=== PATIENT | female | born 1985 | race American Indian/Alaskan Native ===

== ENCOUNTER 2016-10-22 02:16 | Emergency (ER) | payer SELFPAY ==
[2016-10-22 02:18] VITALS: BMI 38.6
[2016-10-22 02:31] VITALS: BP 144/78; PULSE 85; RESP 17; TEMP 98.4; O2SAT 98
[2016-10-22] MEDS ORDERED: DiphenhydrAMINE 50 mg/ml Inj ONE ×2 (02:47→03:50)
--- NOTE | 2016-10-22 03:01 | ED PDOC ---
HPI: General Adult Time Seen by Provider: 10/22/16 02:37 Chief Complaint (Nursing): Medical Clearance Chief Complaint (Provider): left upper lip swelling History Per: Patient History/Exam Limitations: no limitations Onset/Duration Of Symptoms: Sudden Onset Have you had recent travel within the past 21 days to any of the following countries: [place], [place], [place] or [place]?: No Current Symptoms Are (Timing): Still Present Recently: Seen In ED Additional Complaint(s): 31yo female w/ PMHx including gastritis presents to the ED with c/o acute onset left upper lip swelling. Denies known allergen exposure and states approximately 10 days ago experienced similar episode involving her tongue. Patient was seen in this ED and given IM Benadryl at that time and took Benadryl for a couple days after being discharged with no recurrence of symptoms. Swelling recurred tonight causing presentation. Denies tongue swelling , SOB, throat tightness, chest pain, rash, pruritis. Past Medical History Reviewed: Historical Data, Nursing Documentation, Vital Signs Vital Signs: Last Vital Signs Temp 98.4 F 10/22/16 02:27 Pulse 85 10/22/16 02:27 Resp 17 10/22/16 02:27 BP 144/78 10/22/16 02:27 Pulse Ox 98 10/22/16 03:09 - Medical History PMH: Gastritis - Surgical History Surgical History: No Surg Hx - Family History Family History: States: No Known Family Hx - Social History Current smoker - smoking cessation education provided: No Alcohol: None Drugs: Denies - Immunization History Hx Tetanus Toxoid Vaccination: Yes - Home Medications Home Medications: Ambulatory Orders Medication Instructions Recorded Cetirizine HCl [Zyrtec] 10 mg PO QAM #10 capsule 10/22/16 Famotidine [Pepcid] 20 mg PO Q12 #14 tab 10/22/16 Methylprednisolone [Medrol Dosepak] 4 mg PO ASDIR #1 pkg 10/22/16 - Allergies Allergies/Adverse Reactions: Allergies Allergy/AdvReac Type Severity Reaction Status Date / Time No Known Allergies Allergy Verified 10/14/16 23:28 Review of Systems ROS Statement: Except As Marked, All Systems Reviewed And Found Negative ENT: Positive for: Other (left upper lip swelling, no tongue swelling, no throat tightness ) Cardiovascular: Negative for: Chest Pain Respiratory: Negative for: Shortness of Breath Skin: Positive for: Other (no pruritis ). Negative for: Rash Physical Exam - Reviewed Nursing Documentation Reviewed: Yes Vital Signs Reviewed: Yes - Physical Exam Appears: Positive for: Well, No Acute Distress Head Exam: Positive for: ATRAUMATIC, NORMAL INSPECTION, NORMOCEPHALIC Skin: Positive for: Normal Color, Warm, Dry. Negative for: Rash Eye Exam: Positive for: Normal appearance, EOMI, PERRL ENT: Positive for: Pharynx Is (clear ), Other (2+ lip swelling more prominent on left side ). Negative for: Pharyngeal Erythema, Tonsillar Exudate, Tonsillar Swelling Neck: Positive for: Normal, Painless ROM, Supple Cardiovascular/Chest: Positive for: Regular Rate, Rhythm. Negative for: Murmur , Tachycardia Respiratory: Positive for: Normal Breath Sounds. Negative for: Wheezing, Respiratory Distress Gastrointestinal/Abdominal: Positive for: Normal Exam, Bowel Sounds, Soft. Negative for: Tenderness Back: Positive for: Normal Inspection Extremity: Positive for: Normal ROM. Negative for: Deformity, Swelling Neurologic/Psych: Positive for: Alert, Oriented. Negative for: Motor/Sensory Deficits - Laboratory Results Result Diagrams: 10/22/16 03:15 10/22/16 03:15 - ECG O2 Sat by Pulse Oximetry: 98 Pulse Ox Interpretation: Normal (RA) Medical Decision Making Medical Decision Makin: Impression: 31yo female w/ acute allergic reaction and angioedema of upper lip Plan: Labs IVF, Benadryl 25mg IV, Pepcid 20mg IV, solu-medrol 125mg IVP reassess [id number]: Labs reviewed, show no clinically significant abnormalities. Patient reports significant improvement in symptoms and is stable for d/c. Patient referred to wireless engineer and will also f/u with her PCP. Dx: angioedema, allergic reaction Rx: zyrtec, pepcid, medrol Improved Scribe Attestation: Documented by Mary Rasheed acting as a scribe for Kobi Vásquez MD. Provider Scribe Attestation: All medical record entries made by the Scribe were at my direction and personally dictated by me. I have reviewed the chart and agree that the record accurately reflects my personal performance of the history, physical exam, medical decision making, and the department course for this patient. I have also personally directed, reviewed, and agree with the discharge instructions and disposition. Disposition - Clinical Impression Clinical Impression: Angioedema, Allergic reaction - Patient ED Disposition Is Patient to be Admitted: No Counseled Patient/Family Regarding: Studies Performed, Diagnosis, Need For Followup, Rx Given - Disposition Referrals: Chidi Page MD [Staff Provider] - Taiwo Bhatti MD [Primary Care Provider] - Disposition: Routine/Home Disposition Time: 03:55 Condition: IMPROVED Prescriptions: Methylprednisolone [Medrol Dosepak] 4 mg PO ASDIR #1 pkg Famotidine [Pepcid] 20 mg PO Q12 #14 tab Cetirizine HCl [Zyrtec] 10 mg PO QAM #10 capsule Instructions: Angioedema (ED), General Allergic Reaction (ED)
[2016-10-22] MEDS: DiphenhydrAMINE 50 mg/ml Inj IV STA ×2 (03:08→03:59)
[2016-10-22] MEDS: Sodium Chloride 0.9% 1,000 ML IV STA (03:13)
[2016-10-22 03:32] LABS: BASO # 0.1 K/uL (0.0-0.2); BASO % 1.3 % (0.0-2.0); EOS # 0.2 K/uL (0.0-0.7); EOS % 2.8 % (0.0-4.0); HEMATOCRIT 38.2 % (34.0-47.0); LYMPH # 2.8 K/uL (1.0-4.3); LYMPH % 34.4 % (20.0-40.0); MEAN CELL VOLUME 88.9 fl (81.0-99.0); MEAN CORPUSCULAR HEMOGLOBIN 30.1 pg (27.0-31.0); MEAN CORPUSCULAR HGB CONC 33.9 g/dL (33.0-37.0); MEAN PLATELET VOLUME 9.6 fl (7.2-11.7); MONO # 0.4 K/uL (0.0-0.8); MONO % 4.6 % (0.0-10.0); NEUT # 4.6 K/uL (1.8-7.0); NEUT % 56.9 % (50.0-75.0); RED CELL DISTRIBUTION WIDTH 13.9 % (11.5-14.5)
[2016-10-22 03:37] LABS: CHLORIDE 106 mmol/L (98-107); SODIUM 140 mmol/l (132-148)
[2016-10-22 03:40] LABS: ALB/GLOB RATIO 1.3 (1.0-2.1); ALKALINE PHOSPHATASE 47 U/L (38-126); ALT/SGPT 26 U/L (9-52); AST/SGOT 19 U/L (14-36); BILIRUBIN,TOTAL 0.5 mg/dl (0.2-1.3); BLOOD UREA NITROGEN 7 mg/dl (7-17); CARBON DIOXIDE 25 mmol/L (22-30); GFR AFRICAN-AMERICAN > 60; GLUCOSE,RANDOM 95 mg/dL (65-105); TOTAL PROTEIN 7.4 G/DL (6.3-8.2)
[2016-10-22 03:41] LABS: CALCIUM 9.3 mg/dL (8.4-10.2)
== END 2016-10-22 03:51 | disposition home or self-care (01) ==
LOC: H.ER 02:16
DX: T78.3XXA Angioneurotic edema, initial encounter (principal); T78.40XA Allergy, unspecified, initial encounter
CPT/HCPCS: 80053; 81025; 85025; 96361; 96374; 96375; 96376; 99283; J1200; J2930; J7040

== ENCOUNTER 2016-11-09 21:44 | Emergency (ER) | payer MEDICAID ==
[2016-11-09 21:49] VITALS: BMI 21.5
[2016-11-09] MEDS ORDERED: Sodium Chloride 0.9% 1,000 ML IV STA (22:06)
[2016-11-09 22:31] LABS: BASO % 0.6 % (0.0-2.0); EOS % 0.6 % (0.0-4.0); HEMATOCRIT 39.3 % (34.0-47.0); LYMPH % 27.3 % (20.0-40.0); MEAN CORPUSCULAR HGB CONC 33.3 g/dL (33.0-37.0); MEAN PLATELET VOLUME 9.5 fl (7.2-11.7); MONO # 0.3 K/uL (0.0-0.8); MONO % 4.4 % (0.0-10.0); NEUT % 67.1 % (50.0-75.0); RED CELL DISTRIBUTION WIDTH 13.7 % (11.5-14.5); WHITE BLOOD COUNT 7.5 K/uL (4.8-10.8)
[2016-11-09 22:47] LABS: ALB/GLOB RATIO 1.3 (1.0-2.1); ALKALINE PHOSPHATASE 57 U/L (38-126); ALT/SGPT 19 U/L (9-52); AST/SGOT 16 U/L (14-36); BILIRUBIN,TOTAL 0.7 mg/dl (0.2-1.3); BLOOD UREA NITROGEN 7 mg/dl (7-17); CALCIUM 9.6 mg/dL (8.4-10.2); CARBON DIOXIDE 27 mmol/L (22-30); CHLORIDE 103 mmol/L (98-107); GFR AFRICAN-AMERICAN > 60; GLUCOSE,RANDOM 93 mg/dL (65-105); LIPASE 91 U/L (23-300); SODIUM 144 mmol/l (132-148); TOTAL PROTEIN 7.2 G/DL (6.3-8.2)
--- NOTE | 2016-11-09 22:50 | ED PDOC ---
HPI: Abdomen Time Seen by Provider: 11/09/16 21:54 Chief Complaint (Nursing): Abdominal Pain Chief Complaint (Provider): Abdominal Pain History Per: Patient History/Exam Limitations: no limitations Onset/Duration Of Symptoms: Hrs (for a couple of hours, onset after eating dinner), Intermittent Episodes Outside of [place] travel?: No Current Symptoms Are (Timing): Gone Now (not present in ED) Severity: Moderate Location Of Pain/Discomfort: Other (originating in right medial back w/ radiation around to epigastrum and periumbilical regions) Quality Of Discomfort: Cramping Associated Symptoms: Nausea, Vomiting (non-bilious/non-bloody), Diarrhea (mild) . denies: Fever, Chills Additional Complaint(s): Mallory Land is a 31 year old female, with a past medical history inclusive of gastritis (no meds), who presents to the ED on 11/09/16 for the evaluation of a moderate amount of cramping abdominal pain that she has experienced intermittently over the past couple of hours, onset of which was after she had eaten dinner. Pain, not present upon initial ED evaluation, reportedly originates in the right medial back with radiation around to both the epigastric and periumbilical regions. Associated nausea and a couple episodes of non-bilious/non-bloody vomiting also reported in addition to some mild, non- bloody diarrhea. Denies fever/chills. Though she reports having experienced similar pain in the past she has never had her symptoms medically evaluated. PMD: Taiwo Bhatti Past Medical History Reviewed: Historical Data, Nursing Documentation, Vital Signs Vital Signs: Last Vital Signs Temp 98.1 F 11/10/16 02:25 Pulse 75 11/10/16 02:25 Resp 16 11/10/16 02:25 BP 132/85 11/10/16 02:25 Pulse Ox 99 11/10/16 02:25 - Medical History PMH: Gastritis - Surgical History Surgical History: No Surg Hx - Family History Family History: States: Unknown Family Hx - Social History Current smoker - smoking cessation education provided: Yes (light (<10 cigarettes/day)) Alcohol: None Drugs: Denies - Immunization History Hx Tetanus Toxoid Vaccination: Yes - Home Medications Home Medications: Ambulatory Orders Medication Instructions Recorded Cetirizine HCl [Zyrtec] 10 mg PO QAM #10 capsule 10/22/16 Famotidine [Pepcid] 20 mg PO Q12 #14 tab 10/22/16 - Allergies Allergies/Adverse Reactions: Allergies Allergy/AdvReac Type Severity Reaction Status Date / Time No Known Allergies Allergy Verified 10/14/16 23:28 Review of Systems ROS Statement: Except As Marked, All Systems Reviewed And Found Negative Constitutional: Negative for: Fever, Chills Gastrointestinal: Positive for: Nausea, Vomiting (couple episodes, non-bilious/ non-bloody), Abdominal Pain (originating in right medial back w/radiation around to epigastric/periumbilical regions, intermittent and not present in ED) , Diarrhea (mild) Physical Exam - Reviewed Nursing Documentation Reviewed: Yes Vital Signs Reviewed: Yes - Physical Exam Appears: Positive for: Non-toxic, No Acute Distress (comfortable) Head Exam: Positive for: ATRAUMATIC, NORMOCEPHALIC Skin: Positive for: Normal Color, Warm, Dry Eye Exam: Positive for: Normal appearance, EOMI, PERRL Neck: Positive for: Normal, Painless ROM, Supple Cardiovascular/Chest: Positive for: Regular Rate, Rhythm. Negative for: Murmur Respiratory: Positive for: Normal Breath Sounds. Negative for: Respiratory Distress Gastrointestinal/Abdominal: Positive for: Normal Exam, Soft. Negative for: Tenderness Back: Positive for: Normal Inspection. Negative for: L CVA Tenderness, R CVA Tenderness Extremity: Positive for: Normal ROM Neurologic/Psych: Positive for: Alert, Oriented - Laboratory Results Result Diagrams: 11/09/16 22:04 11/09/16 22:04 - ECG O2 Sat by Pulse Oximetry: 98 (RA) Pulse Ox Interpretation: Normal - CT Scan/US US gallbladder Other Rad Studies (CT/US): Read By Radiologist, Radiology Report Reviewed Other Rad Interpretation: no acute findings - Progress Re-evaluation Time: 02:30 Condition: Re-examined, Improved Medical Decision Making Medical Decision Makin:54 Initial Impression: abdominal pain Differential diagnoses include but are not limited to gastritis, gallbladder spasm or other gallbladder disease, IBS, pancreatitis. Initial Plan: * US Gallbladder and Common Duct * Labs * Lipase * Upreg * Udip * IV NS 1000ml at 1000mls/hr * Pepcid 20mg IVP * José Miguel 4mg IV * Bentyl 10mg PO * Reevaluation Scribe Attestation: Documented by Karla Silverman, acting as a scribe for Raissa Monteiro MD. Provider Scribe Attestation: All medical record entries made by the Scribe were at my direction and personally dictated by me. I have reviewed the chart and agree that the record accurately reflects my personal performance of the history, physical exam, medical decision making, and the department course for this patient. I have also personally directed, reviewed, and agree with the discharge instructions and disposition. Disposition - Clinical Impression Clinical Impression: Abdominal pain in female - Patient ED Disposition Is Patient to be Admitted: No Counseled Patient/Family Regarding: Studies Performed, Diagnosis - Disposition Referrals: Taiwo Bhatti MD [Primary Care Provider] - Disposition: Routine/Home Disposition Time: 02:30 Condition: GOOD Additional Instructions: Return for worsening. Follow up with your PCP in 2-3 days. Instructions: Abdominal Pain (ED)
--- NOTE | 2016-11-09 23:40 | US ---
EXAM: US Abdomen Limited, Right Upper Quadrant CLINICAL HISTORY: 31 years old, female; Pain; Abdominal pain; Epigastric; Additional info: Epigastric pain TECHNIQUE: Real-time ultrasound of the right upper quadrant with image documentation. COMPARISON: CT - ABD PELVIS W/O PO OR IV CONT 08/30/2015 12:25:38 AM FINDINGS: Liver: A 13 mm focus of increased echogenicity is identified within the liver, statistically a hemangioma, and similar to previous CT examination performed 08/30/2015. The liver is otherwise unremarkable in echogenicity and size measuring 15.6 cm in longitudinal dimension. No intrahepatic bile duct dilation. Gallbladder: The gallbladder is decompressed, and otherwise unremarkable. No stones are present. Common bile duct: No stones. No dilation, measuring 3 mm. Pancreas: Visualization of the pancreas is limited by overlying bowel gas. Right kidney: No acute findings. No obstructing stones. No solid mass. No hydronephrosis. The visualized portion of the abdominal aorta is non-aneurysmal. The IVC is patent. IMPRESSION: No abnormality detected within the gallbladder. Limited evaluation of the pancreas, secondary to overlying bowel gas. No acute pathology detected sonographically within the right upper quadrant.
[2016-11-10 02:25] VITALS: BP 132/85; PULSE 75; RESP 16; TEMP 98.1
[2016-11-10 02:31] VITALS: O2SAT 98
== END 2016-11-10 02:37 | disposition home or self-care (01) ==
LOC: H.ER 21:44
DX: R10.13 Epigastric pain (principal); R11.2 Nausea with vomiting, unspecified; R19.7 Diarrhea, unspecified

== ENCOUNTER 2017-01-05 22:14 | Emergency (ER) | payer MEDICAID ==
[2017-01-05 22:14] VITALS: BMI 21.5
[2017-01-05 22:32] VITALS: BP 133/86; PULSE 100; RESP 16; TEMP 98.6; O2SAT 98
--- NOTE | 2017-01-05 23:26 | ED PDOC ---
HPI: Abdomen Time Seen by Provider: 01/05/17 22:37 Chief Complaint (Nursing): Abdominal Pain Chief Complaint (Provider): abdominal pain History Per: Patient History/Exam Limitations: no limitations Onset/Duration Of Symptoms: Days (1), Waxing/Waning Outside of [place] travel?: No Current Symptoms Are (Timing): Still Present Location Of Pain/Discomfort: Diffuse Quality Of Discomfort: "Pain" Associated Symptoms: Diarrhea (watery nonbloody nonmucoid), Loss Of Appetite. denies: Fever, Chills, Nausea, Vomiting, Constipation, Urinary Symptoms Exacerbating Factors: Food Alleviating Factors: None Additional Complaint(s): Similar to previous episodes of abdominal pain. Seen in this ER with negative workup several times. No known sick contacts or recent antibiotics. PMD Dr Sevilla. Past Medical History Reviewed: Historical Data, Nursing Documentation, Vital Signs Vital Signs: Last Vital Signs Temp 98.6 F 01/05/17 22:31 Pulse 100 H 01/05/17 22:31 Resp 16 01/05/17 22:31 BP 133/86 01/05/17 22:31 Pulse Ox 98 01/05/17 23:28 - Medical History PMH: Gastritis - Family History Family History: States: No Known Family Hx - Social History Current smoker - smoking cessation education provided: No - Immunization History Hx Tetanus Toxoid Vaccination: Yes - Home Medications Home Medications: Ambulatory Orders Medication Instructions Recorded DiphenhydrAMINE [Benadryl] 50 mg PO PRN PRN 11/16/16 Loratadine [Claritin] 10 mg PO DAILY #7 tab 11/16/16 predniSONE [predniSONE Tab] 40 mg PO DAILY #8 tab 11/16/16 Dicyclomine [Bentyl] 20 mg PO BID PRN #30 tab 01/06/17 Famotidine [Pepcid] 40 mg PO DAILY PRN #14 tab 01/06/17 - Allergies Allergies/Adverse Reactions: Allergies Allergy/AdvReac Type Severity Reaction Status Date / Time No Known Allergies Allergy Verified 01/05/17 22:17 Review of Systems ROS Statement: Except As Marked, All Systems Reviewed And Found Negative (and as per HPI) Gastrointestinal: Positive for: Abdominal Pain, Diarrhea. Negative for: Nausea , Vomiting, Constipation, Melena, Hematochezia Genitourinary Female: Negative for: Dysuria, Frequency, Pelvic Pain Physical Exam - Reviewed Nursing Documentation Reviewed: Yes Vital Signs Reviewed: Yes - Physical Exam Appears: Positive for: Well, Non-toxic Head Exam: Positive for: ATRAUMATIC, NORMOCEPHALIC Skin: Positive for: Warm, Dry Eye Exam: Positive for: EOMI, PERRL ENT: Negative for: Pharyngeal Erythema, Tonsillar Exudate Neck: Positive for: Painless ROM, Supple Cardiovascular/Chest: Positive for: Regular Rate, Rhythm. Negative for: Murmur Respiratory: Positive for: Normal Breath Sounds. Negative for: Wheezing Gastrointestinal/Abdominal: Positive for: Bowel Sounds, Soft, Tenderness (mild diffuse). Negative for: Mass, Distended, Guarding, Rebound Back: Positive for: Normal Inspection. Negative for: Vertebral Tenderness Extremity: Positive for: Normal ROM. Negative for: Deformity Lymphatic: Negative for: Adenopathy Neurologic/Psych: Positive for: Alert. Negative for: Motor/Sensory Deficits - ECG O2 Sat by Pulse Oximetry: 98 - Progress ED Course And Treament: Reviewed previous visits and negative workup for abdominal pain. She had followed up with her doctor who did not refer her to GI. However, she did not report her visits to the ER for this abdominal pain. Given multiple visits for same issue, will trial PO GI meds and reassess. Re-evaluation Time: 00:11 Condition: Improved Disposition - Clinical Impression Clinical Impression: Abdominal pain Counseled Patient/Family Regarding: Studies Performed, Diagnosis, Need For Followup, Rx Given - Disposition Referrals: Jarrett Robins MD [Staff Provider] - 01/07/17 [facility] [Outside] (CALL [employer]OVERED [employer] FOR ASSISTANCE WITH SCHEDULING FOLLOW UP APPOINTMENT WITH A EMPLOYMENT ADVISOR.) Disposition: Routine/Home Disposition Time: 00:00 Condition: IMPROVED Prescriptions: Dicyclomine [Bentyl] 20 mg PO BID PRN #30 tab PRN Reason: abdominal pain Famotidine [Pepcid] 40 mg PO DAILY PRN #14 tab PRN Reason: reflux Instructions: Abdominal Pain (ED) Forms: [facility] ED School/Work Excuse
== END 2017-01-06 00:50 | disposition home or self-care (01) ==
LOC: H.ER 22:14
DX: R10.9 Unspecified abdominal pain (principal)

== ENCOUNTER 2017-01-11 03:51 | Emergency (ER) | payer MEDICAID ==
[2017-01-11 03:52] VITALS: BMI 21.5
[2017-01-11 04:16] VITALS: BP 153/89; PULSE 99; RESP 15; TEMP 97.9; O2SAT 98
[2017-01-11] MEDS ORDERED: Sodium Chloride 0.9% 1,000 ML IV STA (04:26)
--- NOTE | 2017-01-11 04:30 | ED PDOC ---
HPI: Abdomen Time Seen by Provider: 01/11/17 04:09 Chief Complaint (Nursing): Abdominal Pain Chief Complaint (Provider): abdominal pain History Per: Patient History/Exam Limitations: no limitations Onset/Duration Of Symptoms: Hrs (4), Waxing/Waning Current Symptoms Are (Timing): Still Present Location Of Pain/Discomfort: Diffuse Quality Of Discomfort: Cramping Additional History Per: Patient Additional Complaint(s): 31 y/o female presents for eval of diffuse intermittent crampy abdominal pain x 4 hours. Associated nausea, and one episode of nonbloody diarrhea. Patient notes having these symptoms x months, has never followed up with a GI specialist. Denies fever, vomiting, chest pain, shortness of breath, palpitations, recent travel, sick contacts. Past Medical History Reviewed: Historical Data, Nursing Documentation, Vital Signs Vital Signs: Last Vital Signs Temp 97.9 F 01/11/17 04:11 Pulse 99 H 01/11/17 04:11 Resp 15 01/11/17 04:11 BP 153/89 H 01/11/17 04:11 Pulse Ox 98 01/11/17 05:58 - Medical History PMH: Gastritis - Surgical History Surgical History: No Surg Hx - Family History Family History: States: Unknown Family Hx - Immunization History Hx Tetanus Toxoid Vaccination: Yes - Home Medications Home Medications: Ambulatory Orders Medication Instructions Recorded DiphenhydrAMINE [Benadryl] 50 mg PO PRN PRN 11/16/16 Loratadine [Claritin] 10 mg PO DAILY #7 tab 11/16/16 predniSONE [predniSONE Tab] 40 mg PO DAILY #8 tab 11/16/16 Dicyclomine [Bentyl] 20 mg PO BID PRN #30 tab 01/06/17 Famotidine [Pepcid] 40 mg PO DAILY PRN #14 tab 01/06/17 - Allergies Allergies/Adverse Reactions: Allergies Allergy/AdvReac Type Severity Reaction Status Date / Time No Known Allergies Allergy Verified 01/11/17 04:13 Review of Systems ROS Statement: Except As Marked, All Systems Reviewed And Found Negative Gastrointestinal: Positive for: Nausea, Abdominal Pain, Diarrhea Physical Exam - Reviewed Nursing Documentation Reviewed: Yes Vital Signs Reviewed: Yes - Physical Exam Appears: Positive for: Well, Non-toxic, No Acute Distress Head Exam: Positive for: ATRAUMATIC, NORMAL INSPECTION, NORMOCEPHALIC Skin: Positive for: Normal Color Eye Exam: Positive for: Normal appearance ENT: Positive for: Normal ENT Inspection Cardiovascular/Chest: Positive for: Regular Rate, Rhythm Respiratory: Positive for: Normal Breath Sounds Gastrointestinal/Abdominal: Positive for: Bowel Sounds, Soft, Tenderness ( epigastric, lower abdomen). Negative for: Distended, Guarding, Rebound Back: Positive for: Normal Inspection Extremity: Positive for: Normal ROM Neurologic/Psych: Positive for: Alert, Oriented - Laboratory Results Result Diagrams: 01/11/17 04:30 01/11/17 04:30 - ECG O2 Sat by Pulse Oximetry: 98 - Progress ED Course And Treament: labs, urine, IV fluids, IV pepcid, IV zofran, PO bentyl Patient educated on findings, discharged with instructions to follow up GI. Advised to fill prescriptions given at previous visit. Return to ED for worsening/concerning symptoms. Disposition - Clinical Impression Clinical Impression: Abdominal cramps - Patient ED Disposition Is Patient to be Admitted: No Counseled Patient/Family Regarding: Studies Performed, Diagnosis, Need For Followup - Disposition Referrals: Taiwo Bhatti MD [Primary Care Provider] - Jarrett Robins MD [Staff Provider] - Disposition: Routine/Home Disposition Time: 05:57 Condition: IMPROVED Instructions: Abdominal Pain (ED)
[2017-01-11 04:56] LABS: BASO # 0.1 K/uL (0.0-0.2); BASO % 0.6 % (0.0-2.0); EOS # 0.2 K/uL (0.0-0.7); EOS % 1.7 % (0.0-4.0); HEMATOCRIT 37.6 % (34.0-47.0); LYMPH # 3.4 K/uL (1.0-4.3); LYMPH % 34.5 % (20.0-40.0); MEAN CELL VOLUME 88.9 fl (81.0-99.0); MEAN CORPUSCULAR HEMOGLOBIN 29.6 pg (27.0-31.0); MEAN CORPUSCULAR HGB CONC 33.2 g/dL (33.0-37.0); MEAN PLATELET VOLUME 9.6 fl (7.2-11.7); MONO # 0.4 K/uL (0.0-0.8); MONO % 4.1 % (0.0-10.0); NEUT # 5.8 K/uL (1.8-7.0); NEUT % 59.1 % (50.0-75.0); NRBC % 0.1 % (0.0-0.0); RED CELL DISTRIBUTION WIDTH 14.9 % (11.5-14.5); WHITE BLOOD COUNT 9.8 K/uL (4.8-10.8)
[2017-01-11 05:11] LABS: ALB/GLOB RATIO 1.4 (1.0-2.1); ALKALINE PHOSPHATASE 37 U/L (38-126); ALT/SGPT 27 U/L (9-52); AST/SGOT 28 U/L (14-36); BILIRUBIN,TOTAL 0.6 mg/dl (0.2-1.3); BLOOD UREA NITROGEN 10 mg/dl (7-17); CALCIUM 9.1 mg/dL (8.4-10.2); CARBON DIOXIDE 28 mmol/L (22-30); CHLORIDE 103 mmol/L (98-107); GFR AFRICAN-AMERICAN > 60; GLUCOSE,RANDOM 93 mg/dL (65-105); LIPASE 83 U/L (23-300); SODIUM 140 mmol/l (132-148); TOTAL PROTEIN 7.4 G/DL (6.3-8.2)
[2017-01-11 05:12] LABS: POTASSIUM 4.5 MMOL/L (3.6-5.0)
[2017-01-11 05:57] LABS: RBC URINE 3 /hpf (0-3); URINE BACTERIA OCC (<OCC); URINE BILIRUBIN NEGATIVE (NEGATIVE); URINE BLOOD NEGATIVE (NEGATIVE); URINE COLOR YELLOW (YELLOW); URINE GLUCOSE (UA) NEG (Normal); URINE KETONE NEGATIVE (NEGATIVE); URINE LEUKOCYTE ESTERASE TRACE Leu/uL (Negative); URINE PROTEIN NEGATIVE (NEGATIVE); URINE UROBILINOGEN 0.2-1.0 mg/dL (0.2-1.0); WBC URINE 2 /hpf (0-5)
== END 2017-01-11 06:15 | disposition home or self-care (01) ==
LOC: H.ER 03:51
DX: R10.9 Unspecified abdominal pain (principal); R11.0 Nausea

== ENCOUNTER 2017-01-13 10:58 | Emergency (ER) | payer MEDICAID ==
[2017-01-13 11:07] VITALS: BMI 39.4
[2017-01-13 11:09] VITALS: BP 153/91; PULSE 88; RESP 18; TEMP 98; O2SAT 100
[2017-01-13] MEDS ORDERED: Sodium Chloride 0.9% 1,000 ML IV STA (11:46)
[2017-01-13] MEDS ORDERED: methylPREDNISolone 125 MG in Sodium Chloride 0.9% 50 ML IVPB STA (11:46)
--- NOTE | 2017-01-13 12:29 | ED PDOC ---
HPI: Allergic Reaction Time Seen by Provider: 01/13/17 11:33 Chief Complaint (Nursing): Allergic Reaction Chief Complaint (Provider): lip swelling History Per: Patient Additional Complaint(s): pt returns to ED for recurrent lip swelling upon waking this morning. denies any fever, dyspnea, dysphagia, cp, sob. symptoms have been recurrent over the past several months. seen here several times for same and by pmd. 50mg benadryl and epipen taken home today. Past Medical History Reviewed: Historical Data, Nursing Documentation, Vital Signs Vital Signs: Last Vital Signs Temp 98 F 01/13/17 11:08 Pulse 88 01/13/17 11:08 Resp 18 01/13/17 11:08 BP 153/91 H 01/13/17 11:08 Pulse Ox 100 01/13/17 11:08 - Medical History PMH: Gastritis - Family History Family History: States: No Known Family Hx - Social History Current smoker - smoking cessation education provided: No Alcohol: None Drugs: Denies - Immunization History Hx Tetanus Toxoid Vaccination: Yes - Home Medications Home Medications: Ambulatory Orders Medication Instructions Recorded DiphenhydrAMINE [Benadryl] 50 mg PO PRN PRN 11/16/16 Loratadine [Claritin] 10 mg PO DAILY #7 tab 11/16/16 predniSONE [predniSONE Tab] 40 mg PO DAILY #8 tab 11/16/16 Dicyclomine [Bentyl] 20 mg PO BID PRN #30 tab 01/06/17 Famotidine [Pepcid] 40 mg PO DAILY PRN #14 tab 01/06/17 DiphenhydrAMINE [Benadryl] 50 mg PO Q6 #20 cap 01/13/17 Famotidine [Pepcid] 20 mg PO BID #20 tab 01/13/17 Prednisone 50 mg PO DAILY #5 tablet 01/13/17 - Allergies Allergies/Adverse Reactions: Allergies Allergy/AdvReac Type Severity Reaction Status Date / Time No Known Allergies Allergy Verified 01/13/17 11:12 Review of Systems ROS Statement: Except As Marked, All Systems Reviewed And Found Negative ENT: Positive for: Mouth Swelling Physical Exam - Reviewed Nursing Documentation Reviewed: Yes Vital Signs Reviewed: Yes - Physical Exam Appears: Positive for: Well, Non-toxic, No Acute Distress Skin: Positive for: Normal Color, Warm, DRY ENT: Positive for: Other (moderate R upper lip swelling. no tongue swelling, airway patent. ) Neck: Positive for: Normal, Painless ROM Cardiovascular/Chest: Positive for: Regular Rate, Rhythm Respiratory: Positive for: CNT, Normal Breath Sounds Gastrointestinal/Abdominal: Positive for: Normal Exam, Bowel Sounds, Soft. Negative for: Tenderness Extremity: Positive for: Normal ROM. Negative for: Tenderness, Swelling Neurologic/Psych: Positive for: Alert, Oriented - ECG O2 Sat by Pulse Oximetry: 100 - Progress ED Course And Treament: pt observed in ED for 4.5h. lip swelling decreased. will d/c home on benadryl/ pepcid/prednisone. to f/u with specialist on as planned for further w/u. Disposition - Clinical Impression Clinical Impression: Angioedema - Patient ED Disposition Is Patient to be Admitted: No - Disposition Referrals: [facility] [Outside] Disposition: Routine/Home Disposition Time: 15:43 Condition: GOOD Prescriptions: DiphenhydrAMINE [Benadryl] 50 mg PO Q6 #20 cap Famotidine [Pepcid] 20 mg PO BID #20 tab Prednisone 50 mg PO DAILY #5 tablet Instructions: Angioedema (ED)
[2017-01-13] MEDS ORDERED: DiphenhydrAMINE 50 mg/ml Inj IVP STA (14:40)
== END 2017-01-13 15:57 | disposition home or self-care (01) ==
LOC: H.ER 10:58
DX: T78.40XA Allergy, unspecified, initial encounter (principal)

== ENCOUNTER 2017-03-03 11:53 | Emergency (ER) | payer MEDICAID ==
[2017-03-03 11:53] VITALS: BMI 39.4
[2017-03-03 12:06] VITALS: BP 116/79; PULSE 86; RESP 16; TEMP 98.1; O2SAT 99
[2017-03-03] MEDS ORDERED: Alum-Mag Hydrox-Simethicone Susp (30 mL) PO STA (12:22)
--- NOTE | 2017-03-03 12:24 | ED PDOC ---
HPI: Abdomen Time Seen by Provider: 03/03/17 12:14 Chief Complaint (Nursing): Abdominal Pain Chief Complaint (Provider): abdominal pain History Per: Patient Additional Complaint(s): 31-year-old female with history of gastritis presents to emergency department with worsening gastritis symptoms that started yesterday. Patient states that her menstrual cycle began yesterday and her gastritis symptoms are always worse when she starts menstruating. She rates overall abdominal pain as a 5 out of 10 worse in epigastric region. She complains of nausea but no vomiting. She had 1 episode of watery, nonbloody diarrhea yesterday but nothing since. Patient is tolerating liquids and solids but has decreased appetite. She admits to being noncompliant with Pepcid which she is supposed to take daily for gastritis symptoms. Patient has been seen several times in ED for same complaint. Past Medical History Reviewed: Historical Data, Nursing Documentation, Vital Signs Vital Signs: Last Vital Signs Temp 98.1 F 03/03/17 12:02 Pulse 86 03/03/17 12:02 Resp 16 03/03/17 12:02 BP 116/79 03/03/17 12:02 Pulse Ox 99 03/03/17 12:40 - Medical History PMH: Gastritis - Surgical History Surgical History: No Surg Hx - Family History Family History: States: No Known Family Hx - Living Arrangements Living Arrangements: With Family - Social History Current smoker - smoking cessation education provided: No Alcohol: None Drugs: Denies - Home Medications Home Medications: Ambulatory Orders Medication Instructions Recorded Famotidine [Pepcid] 20 mg PO DAILY #30 tab 03/03/17 Nitrofurantoin Macrocrystals 100 mg PO BID #14 cap 03/03/17 [Macrobid] Ondansetron [Zofran Odt] 4 mg PO ASDIR PRN #10 odt 03/03/17 - Allergies Allergies/Adverse Reactions: Allergies Allergy/AdvReac Type Severity Reaction Status Date / Time No Known Allergies Allergy Verified 03/03/17 12:16 Review of Systems ROS Statement: Except As Marked, All Systems Reviewed And Found Negative Constitutional: Negative for: Fever Cardiovascular: Negative for: Chest Pain Respiratory: Negative for: Cough Gastrointestinal: Positive for: Nausea, Abdominal Pain, Diarrhea (x 1 yesterday , no episode since then). Negative for: Vomiting, Constipation Genitourinary Female: Positive for: Vaginal Bleeding (currently mentstruating). Negative for: Dysuria, Frequency Neurological: Negative for: Headache, Dizziness Physical Exam - Reviewed Nursing Documentation Reviewed: Yes Vital Signs Reviewed: Yes - Physical Exam Appears: Positive for: Well, Non-toxic, No Acute Distress Skin: Negative for: Rash Eye Exam: Positive for: Normal appearance Cardiovascular/Chest: Positive for: Regular Rate, Rhythm Respiratory: Positive for: Normal Breath Sounds Gastrointestinal/Abdominal: Positive for: Bowel Sounds (normoactive in all 4 quadrants), Soft, Other (obese nontender abdomen). Negative for: Tenderness, Distended, Guarding, Rebound Back: Negative for: L CVA Tenderness, R CVA Tenderness Extremity: Positive for: Normal ROM. Negative for: Pedal Edema Neurologic/Psych: Positive for: Alert, Oriented - Laboratory Results Urine dip results: Positive for: Leukocyte Esterase (trace), Blood (large), Nitrate (positive). Negative for: Ketones, Glucose, Bilirubin, Protein - ECG O2 Sat by Pulse Oximetry: 99 Pulse Ox Interpretation: Normal Medical Decision Making Medical Decision Making: Impression: gastritis, menstrual cramps Patient is in no acute distress upon arrival. Abdominal exam is benign. Previous records reviewed, patient has been seen multiple times in ED for abdominal pain. Recent previous labs and US are normal. Plan: Urine dip and test IM zofran PO maalox and pepcid Patient feels better after meds given. She tolerated water and juice in ED. UTI noted. Patient was given rx pepcid, zofran and macrobid. Advised tylenol prn. Dietary instructions for gastritis provided. Patient was referred to GI on site coordinator. Disposition - Clinical Impression Clinical Impression: Gastritis, Urinary tract infection, Dysmenorrhea - Patient ED Disposition Is Patient to be Admitted: No Counseled Patient/Family Regarding: Studies Performed, Diagnosis, Need For Followup, Rx Given - Disposition Referrals: Jarrett Robins MD [Staff Provider] - Disposition Time: 13:47 Condition: STABLE Additional Instructions: Tylenol for pain as needed. Take prescription meds as directed. Follow dietary instructions. Follow-up in one to 2 days of data warehouse manager. Prescriptions: Famotidine [Pepcid] 20 mg PO DAILY #30 tab Nitrofurantoin Macrocrystals [Macrobid] 100 mg PO BID #14 cap Ondansetron [Zofran Odt] 4 mg PO ASDIR PRN #10 odt PRN Reason: Nausea/Vomiting Instructions: Gastritis (ED), Diet for Ulcers and Gastritis (ED), Dysmenorrhea (ED), Urinary Tract Infection in Women (ED) Forms: [email or web address] [facility] (Romansh)
== END 2017-03-03 14:49 | disposition home or self-care (01) ==
LOC: H.ER 11:53
DX: N39.0 Urinary tract infection, site not specified (principal); N94.6 Dysmenorrhea, unspecified; K29.70 Gastritis, unspecified, without bleeding

== ENCOUNTER 2017-03-07 14:06 | Emergency (ER) | payer MEDICAID ==
[2017-03-07 14:06] VITALS: BMI 39.1
[2017-03-07 14:12] VITALS: TEMP 97; O2SAT 99
[2017-03-07] MEDS ORDERED: Sodium Chloride 0.9% 1,000 ML IV STA (14:37)
--- NOTE | 2017-03-07 14:41 | ED PDOC ---
HPI: Abdomen Time Seen by Provider: 03/07/17 14:27 Chief Complaint (Nursing): Abdominal Pain Chief Complaint (Provider): Abdominal Pain History Per: Patient History/Exam Limitations: no limitations Onset/Duration Of Symptoms: Hrs (x3) Additional Complaint(s): Mallory Land, 31 year old female with a past medical history inclusive of Gastritis presents to the ED for epigastric abdominal pain associated with diarrhea occurring since 11 AM this morning. She denies nausea, vomiting, fever , or bloody stools. PMD: Taiwo Bhatti MD Past Medical History Reviewed: Historical Data, Nursing Documentation, Vital Signs Vital Signs: Last Vital Signs Temp 97.0 F L 03/07/17 14:08 Pulse 88 03/07/17 14:08 Resp 16 03/07/17 14:08 BP 122/78 03/07/17 14:08 Pulse Ox 99 03/07/17 15:47 - Medical History PMH: Gastritis - Family History Family History: States: Unknown Family Hx - Immunization History Hx Tetanus Toxoid Vaccination: Yes - Home Medications Home Medications: Ambulatory Orders Medication Instructions Recorded Famotidine [Pepcid] 20 mg PO DAILY #30 tab 03/03/17 Nitrofurantoin Macrocrystals 100 mg PO BID #14 cap 03/03/17 [Macrobid] Ondansetron [Zofran Odt] 4 mg PO ASDIR PRN #10 odt 03/03/17 Famotidine [Pepcid] 20 mg PO Q12 #20 tab 03/07/17 - Allergies Allergies/Adverse Reactions: Allergies Allergy/AdvReac Type Severity Reaction Status Date / Time No Known Allergies Allergy Verified 03/03/17 12:16 Review of Systems ROS Statement: Except As Marked, All Systems Reviewed And Found Negative Gastrointestinal: Positive for: Abdominal Pain (epigastric), Diarrhea. Negative for: Nausea, Vomiting, Other (no bloody stools) Physical Exam - Reviewed Nursing Documentation Reviewed: Yes Vital Signs Reviewed: Yes - Physical Exam Appears: Positive for: Well, Non-toxic, No Acute Distress Head Exam: Positive for: ATRAUMATIC, NORMAL INSPECTION, NORMOCEPHALIC ENT: Positive for: Other (mucous membranes slightly tachy) Cardiovascular/Chest: Positive for: Regular Rate, Rhythm, Chest Non Tender Respiratory: Positive for: Normal Breath Sounds. Negative for: Respiratory Distress Gastrointestinal/Abdominal: Positive for: Tenderness (mild tenderness to epigastric area) Extremity: Positive for: Normal ROM - Laboratory Results Result Diagrams: 03/07/17 15:15 03/07/17 15:15 - ECG O2 Sat by Pulse Oximetry: 99 (RA) Pulse Ox Interpretation: Normal Medical Decision Making Medical Decision Making: Impression: Epigastric abdominal pain associated with diarrhea Plan: * COMP Metabolic Panel * CBC (With Differential) * Sodium Chloride 0.9% 1,000 ml IV 250 mls/hr * Pepcid 20 mg IVP * Reevaluation Scribe Attestation: Documented by Hollie Goldstein, acting as a scribe for Melvin Reyes MD. Provider Scribe Attestation: All medical record entries made by the Scribe were at my direction and personally dictated by me. I have reviewed the chart and agree that the record accurately reflects my personal performance of the history, physical exam, medical decision making, and the department course for this patient. I have also personally directed, reviewed, and agree with the discharge instructions and disposition. Disposition - Clinical Impression Clinical Impression: Gastritis - Patient ED Disposition Is Patient to be Admitted: No Counseled Patient/Family Regarding: Studies Performed, Diagnosis, Need For Followup, Rx Given - Disposition Referrals: [facility] [Outside] Disposition: Routine/Home Disposition Time: 15:45 Condition: FAIR Prescriptions: Famotidine [Pepcid] 20 mg PO Q12 #20 tab Instructions: Gastritis (ED) Forms: [employer] (Bulgarian)
[2017-03-07 15:22] LABS: BASO # 0.1 K/uL (0.0-0.2); EOS # 0.1 K/uL (0.0-0.7); EOS % 1.7 % (0.0-4.0); HEMOGLOBIN 12.9 g/dL (12.0-16.0); LYMPH # 2.8 K/uL (1.0-4.3); LYMPH % 38.2 % (20.0-40.0); MEAN CELL VOLUME 88.3 fl (81.0-99.0); MEAN CORPUSCULAR HEMOGLOBIN 29.1 pg (27.0-31.0); MEAN PLATELET VOLUME 9.3 fl (7.2-11.7); MONO # 0.3 K/uL (0.0-0.8); MONO % 4.3 % (0.0-10.0); NEUT % 54.8 % (50.0-75.0); NRBC % 0.1 % (0.0-0.0); RBC 4.44 Mil/uL (3.80-5.20); RED CELL DISTRIBUTION WIDTH 14.6 % (11.5-14.5); WHITE BLOOD COUNT 7.2 K/uL (4.8-10.8)
[2017-03-07 15:33] LABS: ALB/GLOB RATIO 1.4 (1.0-2.1); ALBUMIN 4.3 g/dL (3.5-5.0); ALT/SGPT 34 U/L (9-52); AST/SGOT 14 U/L (14-36); BLOOD UREA NITROGEN 7 mg/dl (7-17); CALCIUM 9.5 mg/dL (8.4-10.2); GFR AFRICAN-AMERICAN > 60; GFR NON-AFRICAN AMERICAN > 60
[2017-03-07 15:59] VITALS: BP 117/88; PULSE 80; RESP 20
== END 2017-03-07 15:59 | disposition home or self-care (01) ==
LOC: H.ER 14:06
DX: K29.70 Gastritis, unspecified, without bleeding (principal)

== ENCOUNTER 2017-03-25 18:56 | Emergency (ER) | payer MEDICAID ==
[2017-03-25 18:56] VITALS: BMI 39.1
[2017-03-25 19:17] VITALS: BP 128/82; PULSE 73; RESP 18; TEMP 98; O2SAT 99
[2017-03-25] MEDS ORDERED: Sodium Chloride 0.9% 1,000 ML IV STA (19:38)
--- NOTE | 2017-03-25 19:41 | ED PDOC ---
HPI: Abdomen Time Seen by Provider: 03/25/17 19:24 Chief Complaint (Nursing): Back Pain Chief Complaint (Provider): abdominal pain History Per: Patient History/Exam Limitations: no limitations Onset/Duration Of Symptoms: Hrs, Waxing/Waning Current Symptoms Are (Timing): Better Location Of Pain/Discomfort: Diffuse Quality Of Discomfort: Cramping, "Pain" Associated Symptoms: Nausea, Vomiting, Diarrhea Additional History Per: Patient Additional Complaint(s): 31 y/o female presents with abdominal pain x 2 hours. Patient notes pain to start in back and radiate to front. Associated vomiting x 3 and diarrhea x 2. Denies fever, chest pain, shortness of breath, palpitations, dysuria, hematuria , vaginal bleeding/discharge. Past Medical History Reviewed: Historical Data, Nursing Documentation, Vital Signs Vital Signs: Last Vital Signs Temp 98.0 F 03/25/17 19:14 Pulse 73 03/25/17 19:14 Resp 18 03/25/17 19:14 BP 128/82 03/25/17 19:14 Pulse Ox 99 03/25/17 23:40 - Medical History PMH: Gastritis - Surgical History Surgical History: No Surg Hx - Family History Family History: States: Unknown Family Hx - Immunization History Hx Tetanus Toxoid Vaccination: Yes - Home Medications Home Medications: Ambulatory Orders Medication Instructions Recorded Famotidine [Pepcid] 20 mg PO DAILY #30 tab 03/03/17 Nitrofurantoin Macrocrystals 100 mg PO BID #14 cap 03/03/17 [Macrobid] Ondansetron [Zofran Odt] 4 mg PO ASDIR PRN #10 odt 03/03/17 Famotidine [Pepcid] 20 mg PO Q12 #20 tab 03/07/17 Dicyclomine [Bentyl] 20 mg PO TID PRN #15 tab 03/25/17 Ondansetron ODT [Zofran ODT] 4 mg PO Q8 PRN #10 odt 03/25/17 - Allergies Allergies/Adverse Reactions: Allergies Allergy/AdvReac Type Severity Reaction Status Date / Time No Known Allergies Allergy Verified 03/03/17 12:16 Review of Systems ROS Statement: Except As Marked, All Systems Reviewed And Found Negative Gastrointestinal: Positive for: Nausea, Vomiting, Abdominal Pain Physical Exam - Reviewed Nursing Documentation Reviewed: Yes Vital Signs Reviewed: Yes - Physical Exam Appears: Positive for: Well, Non-toxic, No Acute Distress Head Exam: Positive for: ATRAUMATIC, NORMAL INSPECTION, NORMOCEPHALIC Skin: Positive for: Normal Color Eye Exam: Positive for: Normal appearance ENT: Positive for: Normal ENT Inspection Cardiovascular/Chest: Positive for: Regular Rate, Rhythm Respiratory: Positive for: Normal Breath Sounds Gastrointestinal/Abdominal: Positive for: Normal Exam Back: Positive for: Normal Inspection Extremity: Positive for: Normal ROM Neurologic/Psych: Positive for: Alert, Oriented - Laboratory Results Result Diagrams: 03/25/17 19:54 03/25/17 19:54 - ECG O2 Sat by Pulse Oximetry: 99 - Progress ED Course And Treament: labs, urine, CT abd/pelvis, IV fluids, IV zofran, IV pepcid, PO bentyl. EXAM: CT Abdomen and Pelvis With Intravenous Contrast CLINICAL HISTORY: 31 years old, female; Pain; Abdominal pain; Other: Lower back; Additional info: Abd pain, vomiting, diarrhea TECHNIQUE: Axial computed tomography images of the abdomen and pelvis with intravenous contrast. All CT scans at this facility use one or more dose reduction techniques, viz.: automated exposure control; ma/kV adjustment per patient size (including targeted exams where dose is matched to indication; i.e. head); or iterative reconstruction technique. Coronal and sagittal reformatted images were created and reviewed. CONTRAST: 100 mL of Omnipaque administered intravenously. COMPARISON: CT - ABD PELVIS W/O PO OR IV CONT 08/30/2015 12:25:38 AM FINDINGS: Lower thorax: The bilateral lung bases are clear. ABDOMEN: Liver: No acute findings. Gallbladder and bile ducts: The gallbladder is only minimally distended, without calcified stones. No significant intra- or extrahepatic biliary ductal dilation. Pancreas: Enhances homogeneously. No ductal dilation. No discrete mass. Spleen: No acute findings. Adrenals: No acute findings. Kidneys and ureters: No acute findings. No hydronephrosis or renal calculi. No discrete solid mass. PELVIS: Bladder: No acute findings. Reproductive: A 26 mm involuting cyst is identified within the left ovary. Again identified, is an asymmetrically enlarged right ovary (in comparison to the left) best seen on series 3, image 156. The uterus is anteverted and anteflexed. Appendix: The contrast filled appendix is of normal caliber (series 3, image 128 ; series 601, image 59) . ABDOMEN and PELVIS: Stomach and bowel: Oral contrast extends to the level of the transverse colon, without obstruction. Mural thickening is identified within the rectosigmoid colon, without obstruction. These findings suggest a focal enteritis, for which clinical correlation is needed. Peritoneum: No significant fluid collection. No free air. Lymph nodes: No pathologically enlarged lymph nodes. Vasculature: Unremarkable. Bones: No acute fracture. IMPRESSION: Findings within the rectosigmoid colon suggesting a focal enteritis, for which clinical correlation is needed. Involuting cyst within the left ovary, an interval change from August 2015 examination. Asymmetric enlargement of the right ovary, unchanged from Upon going to educated patient on findings, provide outpatient prescriptions, patient not in exam room. Heplock noted in garbage. Patient left ED before treatment completed. Disposition - Clinical Impression Clinical Impression: Regional enteritis of rectum - Patient ED Disposition Is Patient to be Admitted: No Counseled Patient/Family Regarding: Studies Performed, Diagnosis, Need For Followup, Rx Given - Disposition Referrals: Shailesh Morales MD, PhD [Staff Provider] - Disposition: Left W/O Treatment Disposition Time: 23:35 Condition: UNKNOWN Additional Instructions: Follow up with Title Checker. Take medication as directed. Take Probiotics. Drink plenty of fluids, bland diet. Return to ED for worsening/concerning symptoms. Prescriptions: Dicyclomine [Bentyl] 20 mg PO TID PRN #15 tab PRN Reason: Pain, Mild (1-3) Ondansetron ODT [Zofran ODT] 4 mg PO Q8 PRN #10 odt PRN Reason: Nausea/Vomiting Instructions: Enteritis (ED) Forms: [employer] (Thai)
[2017-03-25 20:03] LABS: BASO # 0.1 K/uL (0.0-0.2); BASO % 0.8 % (0.0-2.0); EOS # 0.2 K/uL (0.0-0.7); EOS % 2.2 % (0.0-4.0); HEMATOCRIT 37.5 % (34.0-47.0); LYMPH % 25.8 % (20.0-40.0); MEAN CELL VOLUME 88.7 fl (81.0-99.0); MEAN CORPUSCULAR HEMOGLOBIN 28.6 pg (27.0-31.0); MEAN CORPUSCULAR HGB CONC 32.2 g/dL (33.0-37.0); MEAN PLATELET VOLUME 9.7 fl (7.2-11.7); MONO # 0.4 K/uL (0.0-0.8); MONO % 4.5 % (0.0-10.0); NEUT # 5.3 K/uL (1.8-7.0); NEUT % 66.7 % (50.0-75.0); RED CELL DISTRIBUTION WIDTH 14.4 % (11.5-14.5); WHITE BLOOD COUNT 7.9 K/uL (4.8-10.8)
[2017-03-25 20:07] LABS: ALB/GLOB RATIO 1.5 (1.0-2.1); ALKALINE PHOSPHATASE 48 U/L (38-126); ALT/SGPT 35 U/L (9-52); AST/SGOT 20 U/L (14-36); BILIRUBIN,TOTAL 0.3 mg/dl (0.2-1.3); BLOOD UREA NITROGEN 10 mg/dl (7-17); CALCIUM 9.5 mg/dL (8.4-10.2); CARBON DIOXIDE 25 mmol/L (22-30); CHLORIDE 105 mmol/L (98-107); GFR AFRICAN-AMERICAN > 60; GLUCOSE,RANDOM 101 mg/dL (65-105); LIPASE 117 U/L (23-300); POTASSIUM 4.4 MMOL/L (3.6-5.0); SODIUM 140 mmol/l (132-148); TOTAL PROTEIN 7.2 G/DL (6.3-8.2)
[2017-03-25] MEDS ORDERED: Iohexol 240 (50 ml) PO ONE (20:11)
[2017-03-25 20:23] LABS: RBC URINE 1 /hpf (0-3); URINE BILIRUBIN NEGATIVE (NEGATIVE); URINE BLOOD NEGATIVE (NEGATIVE); URINE COLOR YELLOW (YELLOW); URINE GLUCOSE (UA) NEG (Normal); URINE KETONE NEGATIVE (NEGATIVE); URINE LEUKOCYTE ESTERASE TRACE Leu/uL (Negative); URINE PROTEIN NEGATIVE (NEGATIVE); URINE UROBILINOGEN 0.2-1.0 mg/dL (0.2-1.0); WBC URINE 5 /hpf (0-5)
[2017-03-25] MEDS ORDERED: Iohexol 240 (50 ml) ONE (20:34)
[2017-03-25] MEDS ORDERED: Sodium Chloride 0.9% 50 ML IV ONE (22:43)
[2017-03-25] MEDS ORDERED: Iohexol 300 100 ML IJ ONE (22:43)
--- NOTE | 2017-03-25 23:22 | CT ---
EXAM: CT Abdomen and Pelvis With Intravenous Contrast CLINICAL HISTORY: 31 years old, female; Pain; Abdominal pain; Other: Lower back; Additional info: Abd pain, vomiting, diarrhea TECHNIQUE: Axial computed tomography images of the abdomen and pelvis with intravenous contrast. All CT scans at this facility use one or more dose reduction techniques, viz.: automated exposure control; ma/kV adjustment per patient size (including targeted exams where dose is matched to indication; i.e. head); or iterative reconstruction technique. Coronal and sagittal reformatted images were created and reviewed. CONTRAST: 100 mL of Omnipaque administered intravenously. COMPARISON: CT - ABD PELVIS W/O PO OR IV CONT 08/30/2015 12:25:38 AM FINDINGS: Lower thorax: The bilateral lung bases are clear. ABDOMEN: Liver: No acute findings. Gallbladder and bile ducts: The gallbladder is only minimally distended, without calcified stones. No significant intra- or extrahepatic biliary ductal dilation. Pancreas: Enhances homogeneously. No ductal dilation. No discrete mass. Spleen: No acute findings. Adrenals: No acute findings. Kidneys and ureters: No acute findings. No hydronephrosis or renal calculi. No discrete solid mass. PELVIS: Bladder: No acute findings. Reproductive: A 26 mm involuting cyst is identified within the left ovary. Again identified, is an asymmetrically enlarged right ovary (in comparison to the left) best seen on series 3, image 156. The uterus is anteverted and anteflexed. Appendix: The contrast filled appendix is of normal caliber (series 3, image 128; series 601, image 59) . ABDOMEN and PELVIS: Stomach and bowel: Oral contrast extends to the level of the transverse colon, without obstruction. Mural thickening is identified within the rectosigmoid colon, without obstruction. These findings suggest a focal enteritis, for which clinical correlation is needed. Peritoneum: No significant fluid collection. No free air. Lymph nodes: No pathologically enlarged lymph nodes. Vasculature: Unremarkable. Bones: No acute fracture. IMPRESSION: Findings within the rectosigmoid colon suggesting a focal enteritis, for which clinical correlation is needed. Involuting cyst within the left ovary, an interval change from August 2015 examination. Asymmetric enlargement of the right ovary, unchanged from prior.
== END 2017-03-25 23:33 | disposition left against medical advice (07) ==
LOC: H.ER 18:56
DX: K50.10 Crohn's disease of large intestine without complications (principal); N83.202 Unspecified ovarian cyst, left side
CPT/HCPCS: 74177; 80053; 81003; 81025; 83690; 85025; 87086; 96374; 96375; 99282; J1885; J2405; J7040; Q9966; Q9967

== ENCOUNTER 2017-04-04 21:11 | Emergency (ER) | payer MEDICAID ==
[2017-04-04 21:11] VITALS: BMI 39.1
[2017-04-04 21:18] VITALS: BP 133/81; PULSE 71; RESP 20; TEMP 97.7; O2SAT 100
--- NOTE | 2017-04-04 21:31 | ED PDOC ---
HPI: General Adult Time Seen by Provider: 04/04/17 21:21 Chief Complaint (Nursing): Abdominal Pain Chief Complaint (Provider): Abd pain History Per: Patient History/Exam Limitations: no limitations Onset/Duration Of Symptoms: Days (years) Have you had recent travel within the past 21 days to any of the following countries: [place], [place], [place] or [place]?: No Additional Complaint(s): Pt. has had abd pain off and on for years. It goes away on its own. Not new today. Today she had some food and was resting when she felt a pain in abd diffuse. Took pepcid and came to the ER. Started 1 hr guard captain. Pt. denies any new food, drinks, back pain, dysuria, weakness, headaches, nausea, vomit. Has diarrhea, nonbloody with the pain. No fever. States this is the same symptoms she gets al the time. Here many times for the same. Has GI appt. in few days. No recent travel. Feels better from the pepcid. Past Medical History Reviewed: Historical Data, Nursing Documentation, Vital Signs Vital Signs: Last Vital Signs Temp 97.7 F 04/04/17 21:15 Pulse 71 04/04/17 21:15 Resp 20 04/04/17 21:15 BP 133/81 04/04/17 21:15 Pulse Ox 100 04/04/17 22:15 - Medical History PMH: Gastritis - Surgical History Surgical History: No Surg Hx - Family History Family History: States: Unknown Family Hx - Social History Current smoker - smoking cessation education provided: No Alcohol: None Drugs: Denies - Immunization History Hx Tetanus Toxoid Vaccination: Yes - Home Medications Home Medications: Ambulatory Orders Medication Instructions Recorded Famotidine [Pepcid] 20 mg PO DAILY #30 tab 03/03/17 Nitrofurantoin Macrocrystals 100 mg PO BID #14 cap 03/03/17 [Macrobid] Ondansetron [Zofran Odt] 4 mg PO ASDIR PRN #10 odt 03/03/17 Famotidine [Pepcid] 20 mg PO Q12 #20 tab 03/07/17 Dicyclomine [Bentyl] 20 mg PO TID PRN #15 tab 03/25/17 Ondansetron ODT [Zofran ODT] 4 mg PO Q8 PRN #10 odt 03/25/17 Dicyclomine [Dicyclomine HCl] 20 mg PO DAILY PRN 7 Days 04/04/17 - Allergies Allergies/Adverse Reactions: Allergies Allergy/AdvReac Type Severity Reaction Status Date / Time No Known Allergies Allergy Verified 03/03/17 12:16 Review of Systems ROS Statement: Except As Marked, All Systems Reviewed And Found Negative Gastrointestinal: Positive for: Abdominal Pain, Diarrhea Physical Exam - Reviewed Nursing Documentation Reviewed: Yes Vital Signs Reviewed: Yes - Physical Exam Appears: Positive for: Non-toxic, No Acute Distress Head Exam: Positive for: ATRAUMATIC, NORMAL INSPECTION, NORMOCEPHALIC Skin: Positive for: Normal Color, Warm, DRY Eye Exam: Positive for: EOMI, Normal appearance, PERRL ENT: Positive for: Normal ENT Inspection Neck: Positive for: Normal, Painless ROM Cardiovascular/Chest: Positive for: Regular Rate, Rhythm Respiratory: Positive for: CNT, Normal Breath Sounds Gastrointestinal/Abdominal: Positive for: Normal Exam, Bowel Sounds, Soft. Negative for: Tenderness, Distended, Guarding Back: Positive for: Normal Inspection. Negative for: L CVA Tenderness, R CVA Tenderness Extremity: Positive for: Normal ROM. Negative for: Tenderness, Pedal Edema Neurologic/Psych: Positive for: Alert, Oriented - ECG O2 Sat by Pulse Oximetry: 100 Pulse Ox Interpretation: Normal - Progress ED Course And Treament: 2131: Stable. Pain free currently. Agrees to take bentyl po and see how she does. Same pain she has all the time and the medicine helps. Had ct in past 10 days with no acute major findings. Multiple ER visits for the same. 2214: Stable. Pain is back and states it seems to come each time her period is coming or going. States will take toradol. It is same made she got last time. 2299: Stable. AAOx3. Pain free. Tolerated PO. Fu with pcp. Disposition - Clinical Impression Clinical Impression: Abdominal discomfort - Patient ED Disposition Is Patient to be Admitted: No Counseled Patient/Family Regarding: Diagnosis, Need For Followup, Rx Given - Disposition Referrals: [facility] [Outside] - 04/05/17 Disposition: Routine/Home Disposition Time: 23:06 Condition: STABLE Additional Instructions: Return if not better in 3 days. Prescriptions: Dicyclomine [Dicyclomine HCl] 20 mg PO DAILY PRN 7 Days PRN Reason: Pain, Mild (1-3) Instructions: Abdominal Pain (ED) Forms: [employer] (Korean)
== END 2017-04-04 23:35 | disposition home or self-care (01) ==
LOC: H.ER 21:11
DX: R10.9 Unspecified abdominal pain (principal)
CPT/HCPCS: 96372; 99282; J1885; J2405

== ENCOUNTER 2017-04-11 03:01 | Emergency (ER) | payer MEDICAID ==
[2017-04-11 03:21] VITALS: BP 130/83; PULSE 87; RESP 18; TEMP 98.7; O2SAT 99; BMI 21.5
--- NOTE | 2017-04-11 04:05 | ED PDOC ---
HPI: Abdomen Time Seen by Provider: 04/11/17 03:25 Chief Complaint (Nursing): Back Pain Chief Complaint (Provider): Back pain, abdominal pain History Per: Patient History/Exam Limitations: no limitations Onset/Duration Of Symptoms: Hrs (2) Outside of [place] travel?: No Current Symptoms Are (Timing): Gone Now Location Of Pain/Discomfort: Suprapubic Associated Symptoms: Diarrhea, Back Pain Additional History Per: Patient Additional Complaint(s): The patient is a 31yo female, presents with abdominal pain x 2 hours, intermittent episodes, not currently present. Patient notes pain to start in her lower back and radiates to front. She reports associated diarrhea present for the past two hours. She states she usually takes pepcid for her symptoms but has run out of the medications. Pt offers no additional medical complaints. Past Medical History Reviewed: Historical Data, Nursing Documentation, Vital Signs Vital Signs: Last Vital Signs Temp 98.7 F 04/11/17 03:19 Pulse 87 04/11/17 03:19 Resp 18 04/11/17 03:19 BP 130/83 04/11/17 03:19 Pulse Ox 99 04/11/17 04:19 - Medical History PMH: Gastritis - Surgical History Surgical History: No Surg Hx - Family History Family History: States: Unknown Family Hx - Social History Current smoker - smoking cessation education provided: No Alcohol: None Drugs: Denies - Immunization History Hx Tetanus Toxoid Vaccination: Yes - Home Medications Home Medications: Ambulatory Orders Medication Instructions Recorded Nitrofurantoin Macrocrystals 100 mg PO BID #14 cap 03/03/17 [Macrobid] Ondansetron [Zofran Odt] 4 mg PO ASDIR PRN #10 odt 03/03/17 Famotidine [Pepcid] 20 mg PO Q12 #20 tab 03/07/17 Dicyclomine [Bentyl] 20 mg PO TID PRN #15 tab 03/25/17 Ondansetron ODT [Zofran ODT] 4 mg PO Q8 PRN #10 odt 03/25/17 Dicyclomine [Dicyclomine HCl] 20 mg PO DAILY PRN 7 Days 04/04/17 Famotidine [Pepcid] 20 mg PO DAILY #30 tab 04/11/17 - Allergies Allergies/Adverse Reactions: Allergies Allergy/AdvReac Type Severity Reaction Status Date / Time No Known Allergies Allergy Verified 03/03/17 12:16 Review of Systems ROS Statement: Except As Marked, All Systems Reviewed And Found Negative Gastrointestinal: Positive for: Abdominal Pain, Diarrhea Musculoskeletal: Positive for: Back Pain Physical Exam - Reviewed Nursing Documentation Reviewed: Yes Vital Signs Reviewed: Yes - Physical Exam Appears: Positive for: Non-toxic, No Acute Distress Head Exam: Positive for: ATRAUMATIC, NORMAL INSPECTION, NORMOCEPHALIC Skin: Positive for: Normal Color, Warm, Dry Eye Exam: Positive for: Normal appearance Neck: Positive for: Normal, Supple Cardiovascular/Chest: Positive for: Regular Rate, Rhythm Respiratory: Positive for: Normal Breath Sounds. Negative for: Respiratory Distress Gastrointestinal/Abdominal: Positive for: Normal Exam, Soft. Negative for: Tenderness Back: Positive for: Normal Inspection Extremity: Positive for: Normal ROM. Negative for: Deformity, Swelling Neurologic/Psych: Positive for: Alert, Oriented. Negative for: Motor/Sensory Deficits - Laboratory Results Result Diagrams: 04/11/17 04:24 04/11/17 04:24 - ECG O2 Sat by Pulse Oximetry: 99 (RA) Pulse Ox Interpretation: Normal Medical Decision Making Medical Decision Making: Time: 0340 Impression: Recurring gastritis, lower back pain Differntial: Musculoskeletal pain, UTI, pancreatitis Plan: -- Upon review of charts, pt with multiple visits to the facility for similar complaints. Pt confirms that she has visited this facility multiple times. -- CBC -- BMP -- Lipase --Reassess Scribe Attestation: Documented by Julianna Ashton acting as a scribe for Raissa Monteiro MD Provider Scribe Attestation: All medical record entries made by the Scribe were at my direction and personally dictated by me. I have reviewed the chart and agree that the record accurately reflects my personal performance of the history, physical exam, medical decision making, and the department course for this patient. I have also personally directed, reviewed, and agree with the discharge instructions and disposition. Disposition - Clinical Impression Clinical Impression: Abdominal pain - Patient ED Disposition Is Patient to be Admitted: No Doctor Will See Patient In The: Office Counseled Patient/Family Regarding: Studies Performed, Diagnosis, Need For Followup - Disposition Referrals: Taiwo Bhatti MD [Primary Care Provider] - Disposition: Routine/Home Disposition Time: 05:05 Condition: GOOD Additional Instructions: Follow up with your PCP in 2-3 days. Prescriptions: Famotidine [Pepcid] 20 mg PO DAILY #30 tab Instructions: Gastritis (ED)
[2017-04-11 04:34] LABS: BASO # 0.1 K/uL (0.0-0.2); BASO % 0.8 % (0.0-2.0); EOS # 0.1 K/uL (0.0-0.7); EOS % 1.8 % (0.0-4.0); HEMATOCRIT 37.1 % (34.0-47.0); LYMPH # 2.5 K/uL (1.0-4.3); LYMPH % 32.4 % (20.0-40.0); MEAN CELL VOLUME 87.1 fl (81.0-99.0); MEAN CORPUSCULAR HEMOGLOBIN 29.2 pg (27.0-31.0); MEAN CORPUSCULAR HGB CONC 33.5 g/dL (33.0-37.0); MEAN PLATELET VOLUME 9.7 fl (7.2-11.7); MONO # 0.3 K/uL (0.0-0.8); MONO % 4.3 % (0.0-10.0); NEUT # 4.7 K/uL (1.8-7.0); NEUT % 60.7 % (50.0-75.0); NRBC % 0.1 % (0.0-0.0); RED CELL DISTRIBUTION WIDTH 14.6 % (11.5-14.5); WHITE BLOOD COUNT 7.8 K/uL (4.8-10.8)
[2017-04-11 04:38] LABS: BLOOD UREA NITROGEN 6 mg/dl (7-17); GLUCOSE,RANDOM 91 mg/dL (65-105)
[2017-04-11 04:39] LABS: CALCIUM 9.3 mg/dL (8.4-10.2); CARBON DIOXIDE 24 mmol/L (22-30); CHLORIDE 107 mmol/L (98-107); GFR AFRICAN-AMERICAN > 60; LIPASE 81 U/L (23-300); SODIUM 139 mmol/l (132-148)
== END 2017-04-11 05:25 | disposition home or self-care (01) ==
LOC: H.ER 03:01
DX: N39.0 Urinary tract infection, site not specified (principal); K85.90 Acute pancreatitis without necrosis or infection, unspecified

== ENCOUNTER 2017-05-12 21:04 | Emergency (ER) | payer MEDICAID ==
[2017-05-12 21:04] VITALS: BMI 21.5
[2017-05-12 21:11] VITALS: BP 125/70; PULSE 90; RESP 18; O2SAT 98
--- NOTE | 2017-05-12 21:51 | ED PDOC ---
HPI: Abdomen Chief Complaint (Nursing): Abdominal Pain Chief Complaint (Provider): Abdominal Pain History Per: Patient History/Exam Limitations: no limitations Onset/Duration Of Symptoms: Days (1) Current Symptoms Are (Timing): Still Present Context: Other (Recent ETOH use) Severity: Moderate Location Of Pain/Discomfort: Diffuse Quality Of Discomfort: Aching, Burning Associated Symptoms: Diarrhea. denies: Nausea, Vomiting, Urinary Symptoms Exacerbating Factors: None Alleviating Factors: None Last Bowel Movement: Today Additional Complaint(s): 31 y/o F with PMH of gastritis presents with a 1 day history of diffuse abdominal pain. Patient reports waking up with the pain today, after a night of drinking hard liquor with friends. She reports drinking a significant amount of vodka prior to symptom onset. Pain is moderate intensity, "achy" and burning in quality, with no known alleviating/aggravating factors noted. She denies nausea or vomiting but had 3 watery, non-bloody BMs today. Patient further denies fevers, chills, chest pain or sob. No recent travel or known sick contacts. Past Medical History Vital Signs: Last Vital Signs Temp 98.6 F 05/13/17 00:04 Pulse 90 05/12/17 21:06 Resp 18 05/12/17 21:06 BP 125/70 05/12/17 21:06 Pulse Ox 98 05/12/17 21:58 - Medical History PMH: Gastritis - Family History Family History: States: Unknown Family Hx - Immunization History Hx Tetanus Toxoid Vaccination: Yes - Home Medications Home Medications: Ambulatory Orders Medication Instructions Recorded Nitrofurantoin Macrocrystals 100 mg PO BID #14 cap 03/03/17 [Macrobid] Ondansetron [Zofran Odt] 4 mg PO ASDIR PRN #10 odt 03/03/17 Famotidine [Pepcid] 20 mg PO Q12 #20 tab 03/07/17 Dicyclomine [Bentyl] 20 mg PO TID PRN #15 tab 03/25/17 Ondansetron ODT [Zofran ODT] 4 mg PO Q8 PRN #10 odt 03/25/17 Dicyclomine [Dicyclomine HCl] 20 mg PO DAILY PRN 7 Days cap 04/04/17 Famotidine [Pepcid] 20 mg PO DAILY #30 tab 04/11/17 Famotidine [Pepcid] 20 mg PO BID PRN #10 tab 05/12/17 - Allergies Allergies/Adverse Reactions: Allergies Allergy/AdvReac Type Severity Reaction Status Date / Time No Known Allergies Allergy Verified 03/03/17 12:16 Review of Systems ROS Statement: Except As Marked, All Systems Reviewed And Found Negative Physical Exam - Physical Exam Appears: Positive for: Non-toxic, No Acute Distress Head Exam: Positive for: ATRAUMATIC, NORMAL INSPECTION, NORMOCEPHALIC Skin: Positive for: Normal Color, Warm, Dry Cardiovascular/Chest: Positive for: Regular Rate, Rhythm. Negative for: Murmur Respiratory: Positive for: Normal Breath Sounds. Negative for: Crackles, Rales , Rhonchi Gastrointestinal/Abdominal: Positive for: Bowel Sounds (Normal), Soft, Tenderness (Mild diffuse tenderness). Negative for: Distended, Guarding, Rebound Extremity: Positive for: Capillary Refill (<2s). Negative for: Pedal Edema Neurologic/Psych: Positive for: Alert, Oriented - Laboratory Results Result Diagrams: 05/12/17 21:51 05/12/17 21:51 - ECG O2 Sat by Pulse Oximetry: 98 Disposition - Clinical Impression Clinical Impression: Gastritis - Disposition Referrals: [facility] [Outside] [facility] [place] [Outside] Disposition Time: 02:00 Condition: IMPROVED Additional Instructions: follow up with your primary doctor in 1-2 days return to the ED with any worsening or concerning symptoms Prescriptions: Famotidine [Pepcid] 20 mg PO BID PRN #10 tab PRN Reason: Heartburn Instructions: Gastritis (ED) Forms: [employer] (Hungarian)
[2017-05-12 21:54] LABS: BASO # 0.1 K/uL (0.0-0.2); BASO % 1.2 % (0.0-2.0); EOS # 0.1 K/uL (0.0-0.7); EOS % 1.5 % (0.0-4.0); HEMATOCRIT 37.5 % (34.0-47.0); LYMPH # 2.1 K/uL (1.0-4.3); LYMPH % 28.5 % (20.0-40.0); MEAN CELL VOLUME 88.8 fl (81.0-99.0); MEAN CORPUSCULAR HEMOGLOBIN 29.1 pg (27.0-31.0); MEAN CORPUSCULAR HGB CONC 32.8 g/dL (33.0-37.0); MEAN PLATELET VOLUME 8.9 fl (7.2-11.7); MONO # 0.4 K/uL (0.0-0.8); MONO % 5.6 % (0.0-10.0); NEUT # 4.6 K/uL (1.8-7.0); NEUT % 63.2 % (50.0-75.0); NRBC % 0.1 % (0.0-0.0); RED CELL DISTRIBUTION WIDTH 14.9 % (11.5-14.5); WHITE BLOOD COUNT 7.3 K/uL (4.8-10.8)
[2017-05-12 22:05] LABS: ALB/GLOB RATIO 1.5 (1.0-2.1); ALKALINE PHOSPHATASE 45 U/L (38-126); ALT/SGPT 18 U/L (9-52); AST/SGOT 15 U/L (14-36); BILIRUBIN,TOTAL 0.2 mg/dl (0.2-1.3); BLOOD UREA NITROGEN 6 mg/dl (7-17); CALCIUM 9.2 mg/dL (8.4-10.2); CARBON DIOXIDE 25 mmol/L (22-30); CHLORIDE 107 mmol/L (98-107); GFR AFRICAN-AMERICAN > 60; GLUCOSE,RANDOM 88 mg/dL (65-105); LIPASE 67 U/L (23-300); POTASSIUM 3.9 MMOL/L (3.6-5.0); SODIUM 145 mmol/l (132-148)
[2017-05-12] MEDS ORDERED: Alum-Mag Hydrox-Simethicone Susp (30 mL) PO ONE (22:42)
[2017-05-12] MEDS ORDERED: Oxycodone/Acetaminophen 5/325 mg Tab PO ONE (22:42)
[2017-05-12] MEDS ORDERED: Oxycodone/Acetaminophen 5/325 mg Tab ONE (22:46)
[2017-05-12] MEDS ORDERED: Alum-Mag Hydrox-Simethicone Susp (30 mL) ONE (22:46)
[2017-05-13 00:04] VITALS: TEMP 98.6
== END 2017-05-13 00:04 | disposition home or self-care (01) ==
LOC: H.ER 21:04
DX: K29.70 Gastritis, unspecified, without bleeding (principal); R12 Heartburn

== ENCOUNTER 2017-07-21 00:39 | Emergency (ER) | payer MEDICAID ==
[2017-07-21 00:54] VITALS: BMI 39.1
[2017-07-21 01:00] VITALS: BP 137/85; PULSE 89; RESP 16; TEMP 98.7; O2SAT 100
[2017-07-21] MEDS ORDERED: Sodium Chloride 0.9% 1,000 ML IV STA (01:32)
--- NOTE | 2017-07-21 01:46 | ED PDOC ---
HPI: Abdomen Time Seen by Provider: 07/21/17 01:05 Chief Complaint (Nursing): Abdominal Pain History Per: Patient History/Exam Limitations: no limitations Onset/Duration Of Symptoms: Hrs Current Symptoms Are (Timing): Intermittent Episodes Severity: Moderate Pain Scale Rating Of: 7 Location Of Pain/Discomfort: Periumbilical Quality Of Discomfort: Burning, Pressure Associated Symptoms: Chills, Nausea, Vomiting (x 3), Diarrhea (x2) Exacerbating Factors: None Alleviating Factors: None Last Bowel Movement: Today Additional Complaint(s): CC: abdominal pain HPI: 32 YO female with PMH of gastritis presents to [facility] ED for abdominal pain. Per pt, pain started around 3 hrs ago and is located in the periumbilical area. In addition to the pain, pt endorses n, 3x episode of emesis (food, non-bloody) , diarrhea (x2 brown and no blood noted). Took pepsid earlier today, but did not help with the pain. Last BM 1 hr ago, had popeyes this afternoon, no one at home with similar symptoms. Denies chest pain, dyspnea, remains afebrile. PMH: gastritis SurgH: denies SH: smoker 9+ yrs with 1pack/week, drinks wine in weekends (2-3 glasses) and denies illicit drug use FH: HTN and DM in both sides of the family Allergies: NKDA Meds: denies Abnormal Vaginal Bleeding: No Last Menstral Period: 06/29/17 Past Medical History Vital Signs: Last Vital Signs Temp 98.7 F 07/21/17 00:54 Pulse 89 07/21/17 00:54 Resp 16 07/21/17 00:54 BP 137/85 07/21/17 00:54 Pulse Ox 100 07/21/17 02:20 - Medical History PMH: Gastritis - Surgical History Surgical History: No Surg Hx - Family History Family History: States: Diabetes, Hypertension - Social History Current smoker - smoking cessation education provided: Yes Alcohol: Occasional (2-3 glasses of wine in weekends) Drugs: Denies - Immunization History Hx Tetanus Toxoid Vaccination: Yes - Home Medications Home Medications: Ambulatory Orders Medication Instructions Recorded Nitrofurantoin Macrocrystals 100 mg PO BID #14 cap 03/03/17 [Macrobid] Ondansetron [Zofran Odt] 4 mg PO ASDIR PRN #10 odt 03/03/17 Famotidine [Pepcid] 20 mg PO Q12 #20 tab 03/07/17 Dicyclomine [Bentyl] 20 mg PO TID PRN #15 tab 03/25/17 Ondansetron ODT [Zofran ODT] 4 mg PO Q8 PRN #10 odt 03/25/17 Dicyclomine [Dicyclomine HCl] 20 mg PO DAILY PRN 7 Days cap 04/04/17 Famotidine [Pepcid] 20 mg PO DAILY #30 tab 04/11/17 Famotidine [Pepcid] 20 mg PO BID PRN #10 tab 05/12/17 Dicyclomine [Bentyl] 20 mg PO Q12 PRN #20 tab 07/21/17 Ondansetron ODT [Zofran ODT] 4 mg PO Q6 PRN #16 odt 07/21/17 - Allergies Allergies/Adverse Reactions: Allergies Allergy/AdvReac Type Severity Reaction Status Date / Time No Known Allergies Allergy Verified 07/21/17 00:53 Review of Systems Constitutional: Negative for: Fever, Chills Cardiovascular: Negative for: Chest Pain, Palpitations Respiratory: Negative for: Cough, Shortness of Breath Gastrointestinal: Positive for: Nausea, Vomiting (x 3), Abdominal Pain, Diarrhea (x2) Genitourinary Female: Negative for: Dysuria, Frequency, Hematuria Neurological: Negative for: Weakness, Confusion Psych: Negative for: Anxiety, Depression Physical Exam - Physical Exam Appears: Positive for: Well, Uncomfortable Head Exam: Positive for: ATRAUMATIC, NORMAL INSPECTION Skin: Positive for: Normal Color, Warm, Dry Eye Exam: Positive for: Normal appearance, EOMI Neck: Positive for: Normal, Painless ROM Cardiovascular/Chest: Positive for: Regular Rate, Rhythm. Negative for: Murmur Respiratory: Positive for: Normal Breath Sounds. Negative for: Wheezing Gastrointestinal/Abdominal: Positive for: Bowel Sounds, Soft, Tenderness ( tenderness to palpation of the LLQ and epigastria ). Negative for: Distended, Guarding, Rebound Back: Negative for: L CVA Tenderness, R CVA Tenderness Extremity: Positive for: Normal ROM. Negative for: Pedal Edema Neurologic/Psych: Positive for: Alert, Oriented - Laboratory Results Result Diagrams: 07/21/17 01:45 07/21/17 01:45 - ECG O2 Sat by Pulse Oximetry: 100 - Progress ED Course And Treament: 32 YO Female with PMH of gastritis is seen in the ED for abdominal pain likely 2/2 to enteritis CBC, CMP, UA ordered Benty, IV fluids, Zofran administered CBC, CMP and UA appreciated. WNL Toradol administered. Pt seen and reassessed. Feels well and would like to go home at this time Pt PMD is Dr. Dax John and pt will follow up with PMD Pt encouraged to see a GI specialist, pt understands and agrees with plan Disposition - Clinical Impression Clinical Impression: Gastroenteritis - Patient ED Disposition Is Patient to be Admitted: No - Disposition Referrals: Shailesh John MD [Staff Provider] - Disposition: Routine/Home Disposition Time: 04:36 Condition: STABLE Additional Instructions: Please return to ED if pain persists or worsens Return with fever over 100.4 with tylenol Follow up with PMD Prescriptions: Dicyclomine [Bentyl] 20 mg PO Q12 PRN #20 tab PRN Reason: abdominal pain/diarrhea Ondansetron ODT [Zofran ODT] 4 mg PO Q6 PRN #16 odt PRN Reason: Nausea/Vomiting Instructions: Gastroenteritis (ED) Forms: [employer] (Eritrean)
[2017-07-21 02:09] LABS: BASO # 0.1 K/uL (0.0-0.2); BASO % 1.1 % (0.0-2.0); EOS # 0.2 K/uL (0.0-0.7); EOS % 1.6 % (0.0-4.0); HEMATOCRIT 40.8 % (34.0-47.0); LYMPH # 2.6 K/uL (1.0-4.3); LYMPH % 24.9 % (20.0-40.0); MEAN CELL VOLUME 89.3 fl (81.0-99.0); MEAN CORPUSCULAR HEMOGLOBIN 29.5 pg (27.0-31.0); MEAN PLATELET VOLUME 9.1 fl (7.2-11.7); MONO # 0.4 K/uL (0.0-0.8); MONO % 3.8 % (0.0-10.0); NEUT # 7.1 K/uL (1.8-7.0); NEUT % 68.6 % (50.0-75.0); RED CELL DISTRIBUTION WIDTH 14.9 % (11.5-14.5); WHITE BLOOD COUNT 10.4 K/uL (4.8-10.8)
[2017-07-21 02:12] LABS: RBC URINE 3 /hpf (0-3); URINE BILIRUBIN NEGATIVE (NEGATIVE); URINE BLOOD NEGATIVE (NEGATIVE); URINE COLOR YELLOW (YELLOW); URINE GLUCOSE (UA) NEG (Normal); URINE KETONE NEGATIVE (NEGATIVE); URINE LEUKOCYTE ESTERASE NEG Leu/uL (Negative); URINE PROTEIN NEGATIVE (NEGATIVE); URINE UROBILINOGEN 0.2-1.0 mg/dL (0.2-1.0); WBC URINE 2 /hpf (0-5)
[2017-07-21 02:18] LABS: ALB/GLOB RATIO 1.4 (1.0-2.1); ALKALINE PHOSPHATASE 42 U/L (38-126); ALT/SGPT 30 U/L (9-52); AST/SGOT 17 U/L (14-36); BILIRUBIN,TOTAL 0.5 mg/dl (0.2-1.3); BLOOD UREA NITROGEN 9 mg/dl (7-17); CALCIUM 9.5 mg/dL (8.4-10.2); CARBON DIOXIDE 29 mmol/L (22-30); CHLORIDE 105 mmol/L (98-107); GFR AFRICAN-AMERICAN > 60; GLUCOSE,RANDOM 97 mg/dL (65-105); POTASSIUM 4.1 MMOL/L (3.6-5.0); SODIUM 140 mmol/l (132-148); TOTAL PROTEIN 7.8 G/DL (6.3-8.2)
== END 2017-07-21 04:54 | disposition home or self-care (01) ==
LOC: H.ER 00:39
DX: K52.9 Noninfective gastroenteritis and colitis, unspecified (principal); Z82.49 Family history of ischemic heart disease and other diseases of the circulatory system; Z83.3 Family history of diabetes mellitus
CPT/HCPCS: 80053; 81003; 81025; 85025; 96361; 96374; 96375; 99283; J1885; J2405; J7040

== ENCOUNTER 2017-08-20 09:06 | Day surgery (SDC) | payer MEDICAID ==
[2017-08-20] MEDS ORDERED: Lactated Ringer's 1,000 ML IV ONE (11:40)
[2017-08-20] MEDS ORDERED: Lidocaine 2% MPF (5 ml) Inj ONE (12:31)
[2017-08-20] MEDS ORDERED: Propofol 10 mg/ml Inj (20 ML) ONE (12:31)
[2017-08-20 13:22] VITALS: BP 127/88; PULSE 88; RESP 20; TEMP 98; O2SAT 99
== END 2017-08-20 13:40 | disposition home or self-care (01) ==
LOC: H.ENDO 09:06
PROVIDERS: ATTEND Internal Medicine Gastroenterology
DX: K31.9 Disease of stomach and duodenum, unspecified (principal); R10.13 Epigastric pain; G47.30 Sleep apnea, unspecified; K44.9 Diaphragmatic hernia without obstruction or gangrene
CPT/HCPCS: 43239; 88305; J2704; J3010; J7120

== ENCOUNTER 2017-09-07 21:17 | Emergency (ER) | payer MEDICAID ==
[2017-09-07 21:17] VITALS: BMI 39.1
[2017-09-07 22:02] VITALS: BP 140/82; PULSE 85; RESP 16; TEMP 96.7; O2SAT 100
== END 2017-09-07 23:00 | disposition left against medical advice (07) ==
LOC: H.ER 21:17
DX: Z02.89 Encounter for other administrative examinations (principal)

== ENCOUNTER 2017-11-19 03:51 | Emergency (ER) | payer MEDICAID ==
[2017-11-19 03:52] VITALS: BMI 39.1
[2017-11-19 04:13] VITALS: PULSE 98; RESP 16; TEMP 98.4; O2SAT 100
[2017-11-19] MEDS ORDERED: Alum-Mag Hydrox-Simethicone Susp (30 mL) PO STA (05:30)
[2017-11-19] MEDS ORDERED: Atrop/Hyos/Scop/PhenoB Elixir PO STA (05:30)
--- NOTE | 2017-11-19 05:37 | ED PDOC ---
HPI: Abdomen Time Seen by Provider: 11/19/17 04:11 Chief Complaint (Nursing): Abdominal Pain Chief Complaint (Provider): Abdominal Pain History Per: Patient History/Exam Limitations: no limitations Onset/Duration Of Symptoms: Days (1 day ago) Current Symptoms Are (Timing): Still Present Location Of Pain/Discomfort: Epigastric Additional Complaint(s): 32 yo female with a history of H. Pylori and gastritis, presents to the ED complaining of epigastric abdominal pain, onset of 1 day ago. She reports of nausea and diminished appetite, but denies any vomiting, diarrhea, or fever. Of note, she just recently finished her H. Pylori treatment and is currently awaiting a breath test. PMD:Taiwo Bhatti Past Medical History Reviewed: Historical Data, Nursing Documentation, Vital Signs Vital Signs: Last Vital Signs Temp 98.4 F 11/19/17 04:11 Pulse 98 H 11/19/17 04:11 Resp 16 11/19/17 04:11 BP 135/86 11/19/17 04:14 Pulse Ox 100 11/19/17 05:41 - Medical History PMH: No Chronic Diseases, Gastritis Other PMH: H. Pylori - Surgical History Surgical History: No Surg Hx - Family History Family History: States: Unknown Family Hx, Diabetes, Hypertension - Social History Current smoker - smoking cessation education provided: No Alcohol: Other (yes) Drugs: Denies - Immunization History Hx Tetanus Toxoid Vaccination: Yes - Home Medications Home Medications: Ambulatory Orders Medication Instructions Recorded No Known Home Med 08/20/17 - Allergies Allergies/Adverse Reactions: Allergies Allergy/AdvReac Type Severity Reaction Status Date / Time No Known Allergies Allergy Verified 11/19/17 04:13 Review of Systems ROS Statement: Except As Marked, All Systems Reviewed And Found Negative Constitutional: Positive for: Other (decreased appetite). Negative for: Fever Gastrointestinal: Positive for: Nausea, Abdominal Pain (epigastric). Negative for: Vomiting, Diarrhea Physical Exam - Reviewed Nursing Documentation Reviewed: Yes Vital Signs Reviewed: Yes - Physical Exam Appears: Positive for: Well, Non-toxic, No Acute Distress Head Exam: Positive for: ATRAUMATIC, NORMAL INSPECTION, NORMOCEPHALIC Skin: Positive for: Normal Color, Warm, DRY Eye Exam: Positive for: EOMI, Normal appearance, PERRL ENT: Positive for: Normal ENT Inspection Neck: Positive for: Normal, Painless ROM Cardiovascular/Chest: Positive for: Regular Rate, Rhythm. Negative for: Murmur Respiratory: Positive for: Normal Breath Sounds. Negative for: Respiratory Distress Gastrointestinal/Abdominal: Positive for: Normal Exam, Soft, Tenderness (mild epigastric ) Back: Positive for: Normal Inspection Extremity: Positive for: Normal ROM. Negative for: Pedal Edema, Deformity Neurologic/Psych: Positive for: Alert, Oriented. Negative for: Motor/Sensory Deficits - Laboratory Results Result Diagrams: 11/19/17 05:45 11/19/17 05:45 - ECG O2 Sat by Pulse Oximetry: 100 (RA) Pulse Ox Interpretation: Normal Medical Decision Making Medical Decision Making: Time: --05:29 Impression: --32 yo female with epigastric pain in setting of known history H. Pylori and gastritis Plan: --Labs --Lipase --ED urine dip -Urine Preg --Aluminum Hydroxide 30ml PO --Atropine 10ml PO --Pepcid 20mg IV --Toradol 30mg IV --Heplock Insertion --Urinalysis - Reassess --06:46 Patient reports of improvement of symptoms. Labs reviewed and reveal no clinically significant abnormalities. Patient is stable for discharge home. Patient states that she has a prescription of omeprazole at home and is instructed to continue use. Scribe Attestation: Documented by Raimundo Kirkland acting as a scribe for Kobi Vásquez MD. Provider Attestation: All medical record entries made by the Scribe were at my direction and personally dictated by me. I have reviewed the chart and agree that the record accurately reflects my personal performance of the history, physical exam, medical decision making, and the department course for this patient. I have also personally directed, reviewed, and agree with the discharge instructions and disposition. Disposition - Clinical Impression Clinical Impression: Abdominal pain - Patient ED Disposition Is Patient to be Admitted: No - Disposition Referrals: Taiwo Bhatti MD [Primary Care Provider] - Disposition: Routine/Home Disposition Time: 06:46 Condition: STABLE Instructions: Stomach Ache and Stomach Upset Forms: [employer] (Hungarian)
[2017-11-19 05:49] LABS: BASO % 0.5 % (0.0-2.0); EOS # 0.2 K/uL (0.0-0.7); EOS % 2.4 % (0.0-4.0); HEMOGLOBIN 12.4 g/dL (12.0-16.0); LYMPH # 2.7 K/uL (1.0-4.3); LYMPH % 30.6 % (20.0-40.0); MEAN CELL VOLUME 90.1 fl (81.0-99.0); MEAN CORPUSCULAR HEMOGLOBIN 29.7 pg (27.0-31.0); MEAN CORPUSCULAR HGB CONC 32.9 g/dL (33.0-37.0); MEAN PLATELET VOLUME 9.6 fl (7.2-11.7); MONO # 0.5 K/uL (0.0-0.8); MONO % 5.9 % (0.0-10.0); NEUT # 5.3 K/uL (1.8-7.0); NEUT % 60.6 % (50.0-75.0); NRBC % 0.1 % (0.0-0.0); RBC 4.16 Mil/uL (3.80-5.20); RED CELL DISTRIBUTION WIDTH 15.2 % (11.5-14.5); WHITE BLOOD COUNT 8.8 K/uL (4.8-10.8)
[2017-11-19] MEDS ORDERED: Alum-Mag Hydrox-Simethicone Susp (30 mL) ONE (05:51)
[2017-11-19 05:54] VITALS: BP 135/86
[2017-11-19 05:57] LABS: CALCIUM 9.1 mg/dL (8.4-10.2); GFR AFRICAN-AMERICAN > 60; GFR NON-AFRICAN AMERICAN > 60; LIPASE 116 U/L (23-300)
[2017-11-19 05:58] LABS: ALB/GLOB RATIO 1.1 (1.0-2.1); ALBUMIN 4.1 g/dL (3.5-5.0); ALT/SGPT 33 U/L (9-52); AST/SGOT 35 U/L (14-36); BLOOD UREA NITROGEN 12 mg/dl (7-17)
[2017-11-19 06:08] LABS: SQUAMOUS EPITHIAL 12 /hpf (0-5); URINE BILIRUBIN NEGATIVE (NEGATIVE); URINE BLOOD NEGATIVE (NEGATIVE); URINE CALCIUM OXALATE CRYSTALS OCC /hpf (<OCC); URINE CLARITY CLOUDY (Clear); URINE COLOR YELLOW (YELLOW); URINE GLUCOSE (UA) NEG (Normal); URINE LEUKOCYTE ESTERASE NEG Leu/uL (Negative); URINE PROTEIN 30 mg/dL (NEGATIVE); URINE UROBILINOGEN 0.2-1.0 mg/dL (0.2-1.0)
== END 2017-11-19 06:51 | disposition home or self-care (01) ==
LOC: H.ER 03:51
DX: R10.13 Epigastric pain (principal); Z87.19 Personal history of other diseases of the digestive system
CPT/HCPCS: 80053; 81003; 81025; 83690; 85025; 96374; 96375; 99283; J1885

== ENCOUNTER 2017-12-24 13:40 | Emergency (ER) | payer MEDICAID ==
[2017-12-24 13:40] VITALS: BMI 39.1
[2017-12-24 13:44] VITALS: PULSE 88; RESP 16
[2017-12-24] MEDS ORDERED: Sodium Chloride 0.9% 1,000 ML IV STA (14:14)
--- NOTE | 2017-12-24 14:23 | ED PDOC ---
HPI: Abdomen Time Seen by Provider: 12/24/17 13:57 Chief Complaint (Nursing): Abdominal Pain Chief Complaint (Provider): Abd pain History Per: Patient History/Exam Limitations: no limitations Onset/Duration Of Symptoms: Days (today) Additional Complaint(s): Pt. with abd pain all over. Goes up to her chest. Is a burning and feels like her usual pain. Was dx with H. Pylori and has done tx for it. She repeated testing and got clear of it 1 month ago. Takes omeprazole as needed for it. Nausea, vomit, diarrhea, nonbloody with it. No dyspnea, weakness, headaches, dizziness, dysuria. Back pain same as usual. Not worst in her life. No leg pain or numbness/tingles. Had greasy food daily for past few weeks. Today had norwegian fries. Past Medical History Reviewed: Nursing Documentation, Vital Signs Vital Signs: Last Vital Signs Temp 97.0 F L 12/24/17 13:41 Pulse 88 12/24/17 13:41 Resp 16 12/24/17 13:41 BP 136/95 H 12/24/17 13:41 Pulse Ox 97 12/24/17 14:24 - Medical History PMH: Gastritis Other PMH: H. Pylori - Surgical History Surgical History: Endoscopy - Family History Family History: States: Unknown Family Hx, Diabetes, Hypertension - Living Arrangements Living Arrangements: With Family - Social History Alcohol: None Drugs: Denies - Immunization History Hx Tetanus Toxoid Vaccination: Yes - Home Medications Home Medications: Ambulatory Orders Medication Instructions Recorded Famotidine [Pepcid] 20 mg PO DAILY PRN #6 tab 12/24/17 - Allergies Allergies/Adverse Reactions: Allergies Allergy/AdvReac Type Severity Reaction Status Date / Time No Known Allergies Allergy Verified 12/24/17 13:41 Review of Systems ROS Statement: Except As Marked, All Systems Reviewed And Found Negative Cardiovascular: Positive for: Chest Pain Gastrointestinal: Positive for: Nausea, Vomiting, Abdominal Pain, Diarrhea Physical Exam - Reviewed Nursing Documentation Reviewed: Yes Vital Signs Reviewed: Yes - Physical Exam Appears: Positive for: Non-toxic, No Acute Distress Head Exam: Positive for: ATRAUMATIC, NORMAL INSPECTION, NORMOCEPHALIC Skin: Positive for: Normal Color, Warm, DRY Eye Exam: Positive for: EOMI, Normal appearance, PERRL ENT: Positive for: Normal ENT Inspection Neck: Positive for: Normal, Painless ROM Cardiovascular/Chest: Positive for: Regular Rate, Rhythm Respiratory: Positive for: CNT, Normal Breath Sounds Gastrointestinal/Abdominal: Positive for: Soft, Tenderness (mid diffuse; nontender on distraction). Negative for: Guarding Back: Positive for: Normal Inspection. Negative for: L CVA Tenderness, R CVA Tenderness Extremity: Positive for: Normal ROM. Negative for: Tenderness, Pedal Edema Neurologic/Psych: Positive for: Alert, Oriented - Laboratory Results Result Diagrams: 12/24/17 14:30 12/24/17 14:30 Interpretation Of Abn Labs: no acute - ECG ECG: Positive for: Interpreted By Me, Viewed By Me ECG Rhythm: Positive for: Normal QRS, Normal ST Segment, Sinus Rhythm O2 Sat by Pulse Oximetry: 97 Pulse Ox Interpretation: Normal - Radiology X-Ray: Interpreted by Me, Viewed By Me X-Ray Interpretation: No Acute Disease - Progress ED Course And Treament: 1600: Stable. AAOx3. Pain free. Tolerated PO. Fu with pcp. Chronic symptoms. Disposition - Clinical Impression Clinical Impression: Gastroenteritis - Patient ED Disposition Is Patient to be Admitted: No Counseled Patient/Family Regarding: Studies Performed, Diagnosis, Need For Followup, Rx Given - Disposition Referrals: Jamil Michael MD [Medical Doctor] - 12/25/17 Disposition: Routine/Home Disposition Time: 16:01 Condition: STABLE Additional Instructions: Return if not better in 3 days. Prescriptions: Famotidine [Pepcid] 20 mg PO DAILY PRN #6 tab PRN Reason: Pain Instructions: Gastritis (DC) Forms: [employer] (Guatemalan)
[2017-12-24 14:40] LABS: BASO # 0.1 K/uL (0.0-0.2); BASO % 0.6 % (0.0-2.0); EOS # 0.1 K/uL (0.0-0.7); EOS % 1.3 % (0.0-4.0); HEMOGLOBIN 13.1 g/dL (12.0-16.0); LYMPH # 1.9 K/uL (1.0-4.3); LYMPH % 18.9 % (20.0-40.0); MEAN CELL VOLUME 88.4 fl (81.0-99.0); MEAN CORPUSCULAR HEMOGLOBIN 29.5 pg (27.0-31.0); MEAN CORPUSCULAR HGB CONC 33.4 g/dL (33.0-37.0); MEAN PLATELET VOLUME 9.3 fl (7.2-11.7); MONO # 0.5 K/uL (0.0-0.8); MONO % 4.5 % (0.0-10.0); NEUT # 7.6 K/uL (1.8-7.0); NEUT % 74.7 % (50.0-75.0); RBC 4.43 Mil/uL (3.80-5.20); RED CELL DISTRIBUTION WIDTH 14.9 % (11.5-14.5); WHITE BLOOD COUNT 10.2 K/uL (4.8-10.8)
[2017-12-24 14:48] LABS: ALB/GLOB RATIO 1.2 (1.0-2.1); ALBUMIN 4.1 g/dL (3.5-5.0); ALT/SGPT 34 U/L (9-52); AST/SGOT 19 U/L (14-36); BLOOD UREA NITROGEN 8 mg/dl (7-17); CALCIUM 9.1 mg/dL (8.4-10.2); GFR AFRICAN-AMERICAN > 60; GFR NON-AFRICAN AMERICAN > 60; LIPASE 82 U/L (23-300)
[2017-12-24] MEDS ORDERED: Famotidine 20mg/50ml 20 MG/50 ML BAG IVPB ONE ×2 (15:30→15:35)
[2017-12-24 16:24] VITALS: BP 133/85; TEMP 97.6; O2SAT 98
--- NOTE | 2017-12-24 17:02 | RAD ---
HISTORY: chest pain COMPARISON: 10.13.12 FINDINGS: LUNGS: No active pulmonary disease. PLEURA: No significant pleural effusion identified, no pneumothorax apparent. CARDIOVASCULAR: No radiographic findings to suggest acute or significant cardiovascular disease. OSSEOUS STRUCTURES: No significant abnormalities. VISUALIZED UPPER ABDOMEN: Normal. OTHER FINDINGS: None. IMPRESSION: No active disease. No significant interval change compared to the prior examination(s). Concordant results with the preliminary interpretation rendered by the emergency department physician procedure.
--- NOTE | 2017-12-25 08:25 | CARD ---
APPROVED REPORT EKG Measurement Heart [id number] ID [id number] <Conclusion> Normal sinus rhythm Normal ECG
== END 2017-12-24 16:15 | disposition home or self-care (01) ==
LOC: H.ER 13:40
DX: K52.9 Noninfective gastroenteritis and colitis, unspecified (principal)
CPT/HCPCS: 71045; 80053; 81025; 83690; 84484; 85025; 93005; 96361; 96374; 96375; 99284; J1885; J2765; J7030

== ENCOUNTER 2018-01-11 22:13 | Emergency (ER) | payer MEDICAID ==
[2018-01-11 22:13] VITALS: BMI 39.1
[2018-01-11 22:55] VITALS: BP 127/93; PULSE 78; RESP 16; TEMP 98.7; O2SAT 98
== END 2018-01-11 23:30 | disposition left against medical advice (07) ==
LOC: H.ER 22:13
DX: Z02.89 Encounter for other administrative examinations (principal)

== ENCOUNTER 2018-12-01 00:14 | Emergency (ER) | payer MEDICAID ==
[2018-12-01 00:15] VITALS: BMI 39.1
[2018-12-01 01:06] VITALS: RESP 18; TEMP 98.4; O2SAT 97
--- NOTE | 2018-12-01 02:01 | ED PDOC ---
HPI: CCC, URI, Sore Throat Time Seen by Provider: 12/01/18 01:30 Chief Complaint (Nursing): ENT Problem Chief Complaint (Provider): ear pain History/Exam Limitations: no limitations Onset/Duration Of Symptoms: Hrs Current Symptoms Are (Timing): Still Present Location Of Pain: Ear(s) Sick Contacts (Context): None Ear Symptoms: Left: Decreased Hearing Severity: Moderate Pain Scale Rating Of: 5 Additional History Per: Patient Additional Complaint(s): 33 year old female with no past medical history presents to the ED c/o left ear pain with decreased hearing after she cleaned ear with q-tip this evening. Patient denies fever, ear drainage. Past Medical History Reviewed: Historical Data, Nursing Documentation, Vital Signs Vital Signs: Last Vital Signs Temp 98.4 F 12/01/18 01:01 Pulse 93 H 12/01/18 01:01 Resp 18 12/01/18 01:01 BP 156/95 H 12/01/18 01:01 Pulse Ox 97 12/01/18 01:01 Primary Care Physician: Everett Barr MD - Medical History PMH: No Chronic Diseases, Gastritis - Surgical History Surgical History: No Surg Hx, Endoscopy - Family History Family History: States: Unknown Family Hx, Diabetes, Hypertension - Social History Alcohol: None Drugs: Denies - Immunization History Hx Tetanus Toxoid Vaccination: Yes - Home Medications Home Medications: Ambulatory Orders Medication Instructions Recorded Famotidine [Pepcid] 20 mg PO DAILY PRN #6 tab 12/24/17 Ofloxacin Otic 0.3% [Floxin 0.3% 10 drop DAILY 7 Days #1 bottle 12/01/18 Otic Soln] - Allergies Allergies/Adverse Reactions: Allergies Allergy/AdvReac Type Severity Reaction Status Date / Time No Known Allergies Allergy Verified 01/11/18 22:53 - ECG O2 Sat by Pulse Oximetry: 97 Medical Decision Making Medical Decision Making: Impression: traumatic ear drum perforation. Clinical exam findings discussed with patient. Left ear drum perforation suspected. Rx given for ofloxacin 10 drops daily for 7 days. Referral to ENT as needed given. Return to ED precautions given. Disposition - Clinical Impression Clinical Impression: Perforated left tympanic membrane on examination, Left ear pain - Patient ED Disposition Is Patient to be Admitted: No Counseled Patient/Family Regarding: Diagnosis, Need For Followup, Rx Given - Disposition Referrals: Everett Barr MD [Primary Care Provider] - Missael Uriostegui MD [Staff Provider] - Disposition Time: 01:35 Condition: GOOD Prescriptions: Ofloxacin Otic 0.3% [Floxin 0.3% Otic Soln] 10 drop DAILY 7 Days #1 bottle Instructions: Ruptured Eardrum (DC) Forms: [facility] ED School/Work Excuse Print Language: BRITISH - POA Present On Arrival: None
[2018-12-01 02:02] VITALS: BP 140/99; PULSE 85
== END 2018-12-01 02:10 | disposition home or self-care (01) ==
LOC: H.ER 00:14
DX: H72.92 Unspecified perforation of tympanic membrane, left ear (principal); H91.92 Unspecified hearing loss, left ear